=== PATIENT | female | born 1935 | race Caucasian/White ===

== ENCOUNTER 2017-09-06 23:38 | Outpatient (CLI) | payer MEDICARE | END 2017-09-06 23:39 | disposition critical access hospital (66) | LOC: EMS 23:38 | PROVIDERS: ATTEND Surgery | DX: M25.552 Pain in left hip (principal); W01.0XXA Fall on same level from slipping, tripping and stumbling without subsequent striking against object, initial encounter; Y92.099 Unspecified place in other non-institutional residence as the place of occurrence of the external cause | CPT/HCPCS: A0425; A0429 ==

== ENCOUNTER 2017-09-06 23:54 | Inpatient (IN) | payer MEDICARE ==
--- NOTE | 2017-09-06 23:55 | ED Physician Documentation ---
PD HPI Fall - Stated complaint Stated Complaint: GLF - LEFT HIP PAIN - History obtained from History obtained from: Patient (limited (demented)), Family, EMS, Caregiver - History of Present Illness Mechanism of injury: Tripped Fall distance: Standing position Where injury occurred: Other (NH) Timing - onset: Today (approximately 20-30 minutes SKATING [employer]) Injury(ies) location: Left Lower Extremity (left hip) Pain level now: 6 Quality of pain: Pain Associated symptoms: No: LOC, AMS, Amnesia Symptoms improve with: Rest Worsens with: Movement, Palpation Contributing factors: No: Anticoagulated, Intoxicated Recently seen: Not recently seen - Additional information Additional information: patient is demented and thus cannot contribute to HPI/ROS. HPI is from family ( in ED at bedside), medic report (which is also includes information given by staff at the facility at which patient is staying). Patient was apparently helped by staff to and from bathroom tonight but after she was put back in bed, she apparently got back up on her own and walked towards the bathroom, tripped and fell, sustaining injury to left hip. Cannot move LLE or bear weight due to pain Review of Systems Unable to obtain: Dementia PD PAST MEDICAL HISTORY - Past Medical History Past Medical History: Yes Neuro: Dementia - Past Surgical History Past Surgical History: No - Present Medications Home Medications: Ambulatory Orders Medication Instructions Recorded Confirmed Acetaminophen [Tylenol] 650 mg PO DAILY 09/07/17 Aspirin 81 mg PO DAILY 09/07/17 Cholecalciferol (Vitamin D3) 1,000 unit PO DAILY 09/07/17 [Vitamin D3] Multivitamin [Multivitamins] 1 each PO DAILY 09/07/17 [place]-3/Dha/Epa/Fish Oil [Fish Oil 1 each PO DAILY 09/07/17 1,000 mg Softgel] Risperidone [Risperidone Odt] 0.25 mg PO DAILY 09/07/17 Vit A/Vit C/Vit E/Zinc/Copper 1 each PO DAILY 09/07/17 [Preservision Areds Softgel] - Allergies Allergies/Adverse Reactions: Allergies Allergy/AdvReac Type Severity Reaction Status Date / Time No Known Drug Allergies Allergy Verified 09/07/17 00:00 PD ED PE NORMAL - Vitals Vital signs reviewed: Yes - General General: No acute distress (NAD at rest, but obvious painful distress with movement involving LLE), Well developed/nourished, Other (awake, alert, conversant with intelligible answers but confused, disoriented, and forgetful ( does not recall meeting me whenever I reenter the room)) - HEENT HEENT: Atraumatic, PERRL, EOMI - Neck Neck: No bony TTP - Respiratory Respiratory: No respiratory distress, Clear bilaterally - Abdomen Abdomen: Soft, Non tender - Back Back: No spinal TTP PD ED PE EXPANDED - Cardiac Cardiac: Regularly irregular - Extremities Extremities: Tenderness, Limited ROM, Left hip Results - Vitals Vitals: Vital Signs - 24 hr 09/06/17 09/07/17 23:55 00:31 Temperature 36.4 C L Heart Rate 48 L 49 L Respiratory 18 16 Rate Blood Pressure 177/75 H 155/72 H O2 Saturation 97 94 Oxygen O2 Source Room air - Rads (name of study) left hip xrays Radiology: Prelim report reviewed, See rad report PD MEDICAL DECISION MAKING - ED course Complexity details: reviewed results, re-evaluated patient, considered differential, d/w patient ED course: D/W Dr. Escalante, will admit to hospitalist service. Also d/w Dr. Malhotra, will see patient in AM in hospital. Departure - Departure Disposition: 66 [facility] DC/Xfer Clinical Impression: Hip fracture Qualifiers: Encounter type: initial encounter Fracture type: closed Laterality: left Qualified Code(s): S72.002A - Fracture of unspecified part of neck of left femur , initial encounter for closed fracture Condition: Stable Discharge Date/Time: 09/07/17 02:07
--- NOTE | 2017-09-07 01:20 | XRAY Report ---
EXAM: LEFT HIP AND PELVIS RADIOGRAPHY EXAM DATE: 09/07/2017 01:08 AM. HISTORY: Fall, pain. COMPARISONS: None. TECHNIQUE: 1 view of the pelvis and 1 view of the hip. FINDINGS: Bones: There is an intratrochanteric fracture of the left hip, mildly foreshortened. Joints: Mild osteoarthritis of the hips. Soft Tissues: Lateral soft tissue swelling. IMPRESSION: Left intratrochanteric hip fracture. [facility] Referring Provider Line: [phone] SITE ID: [id number]
[2017-09-07] MEDS ORDERED: ACETAMINOPHEN 325 MG TABLET PO PRN ×2 (01:26→10:41)
[2017-09-07] MEDS ORDERED: TEMAZEPAM 15 MG CAPSULE PO PRN (01:26)
[2017-09-07] MEDS ORDERED: PROCHLORPERAZINE 10 MG/2 ML VIAL IVP PRN ×2 (01:26→10:41)
[2017-09-07] MEDS ORDERED: SODIUM CHLORIDE FLUSH 0.9% 10 ML SYRINGE IVP PRN ×2 (01:26→10:41)
[2017-09-07] MEDS ORDERED: ONDANSETRON 4 MG/2 ML VIAL IVP PRN ×2 (01:26→10:41)
--- NOTE | 2017-09-07 01:30 | XRAY Report ---
EXAM: CHEST RADIOGRAPHY EXAM DATE: 09/07/2017 01:10 AM. CLINICAL HISTORY: Ground level fall. COMPARISON: None. TECHNIQUE: 1 view. FINDINGS: Lungs/Pleura: No focal opacities evident. No pleural effusion. No pneumothorax. Mediastinum: Within exam limitations, the cardiomediastinal contour is normal. Other: None. IMPRESSION: No evidence of acute cardiopulmonary disease. [facility] Referring Provider Line: [phone] SITE ID: [id number]
--- NOTE | 2017-09-07 01:33 | HISTORY & PHYSICAL EXAMINATION ---
Chief Complaint - Chief Complaint Chief Complaint: Left hip pain History of Present Illness - Admitted From Admitted From:: Emergency Department - History Obtained From Records Reviewed: Yes History obtained from: Patients family Exam Limitations: Patient has dementia and unable to move left leg due to pain - History of Present Illness HPI Comment/Other: Patient is an 82-year-old female who lives at [facility] with a past medical history significant for Alzheimer's dementia, macular degeneration, GERD and urinary incontinence and presents to the emergency department with a chief complaint of left hip pain. The patient was previously living in [place], [place] and was brought up here by her daughter after the patient's last month. She has been placed at a memory care unit in [facility]. The patient has severe short-term memory loss and is unable to provide any history. She cannot even remember why she is here or what happened to her. According to the patient's daughter the patient had gotten up to go to the bathroom late this evening at [facility]. According to the staff at [facility] they helped her get to the bathroom as they do normally. They then placed her back in her bed. They assume that she tried to get back out of bed because she was confused and was putting on her clothing when she must have tripped and fallen. She was found down on the floor unable to get up and in pain. She was confused and unable to provide any history of what had happened. EMS was called and the patient was brought into the emergency department. The patient is demented but she denies any headaches, blurred vision, runny nose , sore throat, nasal congestion, difficulty swallowing, fevers, chills, chest pain, shortness of air, orthopnea, PND, increased lower extremity swelling, palpitations, abdominal pain, nausea, vomiting, diarrhea, constipation, urinary urgency, urinary frequency, dysuria, neck stiffness, changes in appetite, recent unintentional weight loss, hair loss, skin changes, night sweats or any focal neurologic deficits. The patient does admit to pain in the left hip and muscle spasms around the area. On presentation to the emergency department the patient was afebrile and slightly bradycardic. The patient was hypertensive but was not in any respiratory distress. When the patient was moved in the emergency department she was in distress and complaining of pain. Once the patient settled down her pain was controlled and she did not ask for anything for her pain. The patient had a externally rotated and shortened left lower extremity. The patient underwent a x-ray of her left hip which showed a left intertrochanteric fracture. The patient underwent routine lab work which showed a WBC of 14.5 with normal electrolytes and a normal INR. The patient's urine analysis was negative. The emergency room physician spoke with the orthopedic surgeon Dr. Malhotra that the patient be admitted by the service and that he would operate on in the morning. 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 She was living with her until about a month ago when her . She is . She has 2 daughters both of whom live in [facility]. One lives on [facility] and the other one lives in [place]. Due to the patient's severe Alzheimer's dementia she was unable to take care of herself and before her they had a 24-hour caregiver. The patient's daughters wanted to move the patient closer to them so she was brought to a long term called [facility] and placed in the dementia unit. Patient has never been a smoker, she occasionally drinks a glass of wine and denies any illicit drug use. - POLST Patient has POLST: Yes POLST Status: DNR Meds/Allgy - Home Medications Home Medications: Ambulatory Orders Medication Instructions Recorded Confirmed Acetaminophen [Tylenol] 650 mg PO DAILY 09/07/17 Aspirin 81 mg PO DAILY 09/07/17 Cholecalciferol (Vitamin D3) 1,000 unit PO DAILY 09/07/17 [Vitamin D3] Multivitamin [Multivitamins] 1 each PO DAILY 09/07/17 [place]-3/Dha/Epa/Fish Oil [Fish Oil 1 each PO DAILY 09/07/17 1,000 mg Softgel] Risperidone [Risperidone Odt] 0.25 mg PO DAILY 09/07/17 Vit A/Vit C/Vit E/Zinc/Copper 1 each PO DAILY 09/07/17 [Preservision Areds Softgel] - Allergies Allergies/Adverse Reactions: Allergies Allergy/AdvReac Type Severity Reaction Status Date / Time No Known Drug Allergies Allergy Verified 09/07/17 00:00 Review of Systems - Other Findings Other Findings: A comprehensive review of systems was performed the pertinent positives and negatives are stated above in the HPI and the remainder of the review of systems is negative. Exam - Vital Signs Reviewed Vital Signs: Yes Vital Signs: Vital Signs x48h Temp Pulse Resp BP Pulse Ox 09/07/17 00:31 49 L 16 155/72 H 94 09/06/17 23:55 36.4 C L 48 L 18 177/75 H 97 - Physical Exam General Appearance: positive: No acute distress, Alert Eyes Bilateral: positive: Normal inspection, PERRL, No lid inflammation, Conjunctivae nml, No scleral icterus ENT: positive: ENT inspection nml, Pharynx nml, No signs of dehydration. negative: Purulent nasal drainage, Pharyngeal erythema, Oral lesions Neck: positive: Nml inspection, Thyroid nml, No JVD, Trachea midline. negative : Lymphadenopathy (R), Lymphadenopathy (L) Respiratory: positive: Chest non-tender, No respiratory distress, Breath sounds nml Cardiovascular: positive: No murmur, No gallop, Extrasystoles, Bradycardia Peripheral Pulses: positive: 2+ Abdomen: positive: Non-tender, No organomegaly, Nml bowel sounds, No distention Back: positive: Nml inspection. negative: CVA tenderness (R), CVA tenderness (L ) Skin: positive: Color nml, No rash, Warm, Dry Extremities: positive: No pedal edema, Other (Left hip is shortened and externally rotated, decreased ROM secondary to pain of left hip) Neurologic/Psychiatric: positive: CN's nml (2-12), Motor nml, Sensation nml, Mood/affect nml, Disoriented to time Conclusion/Plan - Problem List (1) Intertrochanteric fracture of left hip Conclusion/Plan: Patient appears to have had a mechanical fall and presented to the ER with left hip pain. She was found to have a left intertrochanteric fracture. She needs the left intertrochanteric fracture to be repaired. The patient does not have any history of coronary artery disease, congestive heart failure, diabetes or stroke. According to the revised cardiac risk index the patient's risk of major cardiac event is 0.4%. Plan: N.p.o. Pain control with p.o. Tylenol, p.o. oxycodone and IV morphine Orthopedic surgery consult for surgical repair of the left intertrochanteric fracture DVT prophylaxis post surgery IV fluids PT consult Patient will likely need placement and will need social work consult. Qualifiers: Encounter type: initial encounter Fracture type: closed Fracture alignment: nondisplaced Qualified Code(s): S72.145A - Nondisplaced intertrochanteric fracture of left femur, initial encounter for closed fracture (2) Alzheimer's dementia Conclusion/Plan: Patient has severe Alzheimer's dementia and has very poor short-term memory. She cannot remember why she is in the hospital or what happened. Given her Alzheimer's dementia she runs a risk of delirium and sundowning while she is hospitalized. We will need to continually orient the patient and monitor for any delirium. We will continue the patient on her home dose of risperidone once it is confirmed by the pharmacy. Qualifiers: Alzheimer's disease onset: unspecified onset Dementia behavioral disturbance: without behavioral disturbance Qualified Code(s): G30.9 - Alzheimer's disease, unspecified; F02.80 - Dementia in other diseases classified elsewhere without behavioral disturbance; F02.80 - Dementia in other diseases classified elsewhere without behavioral disturbance; F02.80 - Dementia in other diseases classified elsewhere without behavioral disturbance (3) Hypertension Conclusion/Plan: The patient presents with hypertension and her blood pressure is quite elevated. It is assumed that this is likely elevated secondary to pain from her hip fracture. We expect the blood pressure will improve once we get her pain under control. If the patient's blood pressure continues to be elevated we will need to start her on an antihypertensive. She does not have any history of essential hypertension. We will monitor her blood pressure throughout the hospitalization. Qualifiers: Hypertension type: other secondary hypertension Qualified Code(s): I15.8 - Other secondary hypertension (4) GERD (gastroesophageal reflux disease) Conclusion/Plan: Patient has a history of GERD. We will place her on Pepcid daily. Qualifiers: Esophagitis presence: without esophagitis Qualified Code(s): K21.9 - Gastro -esophageal reflux disease without esophagitis - Lab Results Lab results reviewed: Yes Fish Bones: 09/07/17 01:30 09/07/17 01:30 Other Lab Results: Laboratory Results WBC 14.5 x10^3/uL (4.8-10.8) H 09/07/17 01:30 RBC 4.48 10^6/uL (4.20-5.40) 09/07/17 01:30 Hgb 12.8 g/dL (12.0-16.0) 09/07/17 01:30 Hct 40.1 % (37.0-47.0) 09/07/17 01:30 MCV 89.6 fL (81.0-99.0) 09/07/17 01:30 MCH 28.7 pg (27.0-31.0) 09/07/17 01:30 MCHC 32.0 g/dL (32.0-36.0) 09/07/17 01:30 RDW 13.1 % (12.0-15.0) 09/07/17 01:30 Plt Count 269 10^3/uL (130-450) 09/07/17 01:30 MPV 8.0 fL (7.9-10.8) 09/07/17 01:30 Neut # (Auto) 12.1 10^3/uL (1.5-6.6) H 09/07/17 01:30 Lymph # (Auto) 1.2 10^3/uL (1.5-3.5) L 09/07/17 01:30 [place] # (Auto) 0.9 10^3/uL (0.0-1.0) 09/07/17 01:30 Eos # (Auto) 0.1 10^3/uL (0.0-0.7) 09/07/17 01:30 Baso # (Auto) 0.1 10^3/uL (0.0-0.1) 09/07/17 01:30 Absolute Nucleated RBC 0.01 x10^3/uL 09/07/17 01:30 Nucleated RBC % 0.0 /100WBC 09/07/17 01:30 PT 12.3 secs (9.9-12.6) 09/07/17 01:30 INR 1.1 (0.8-1.2) 09/07/17 01:30 APTT 28.0 secs (24.9-33.3) 09/07/17 01:30 Sodium 138 mmol/L (135-145) 09/07/17 01:30 Potassium 4.0 mmol/L (3.5-5.0) 09/07/17 01:30 Chloride 106 mmol/L (101-111) 09/07/17 01:30 Carbon Dioxide 25 mmol/L (21-32) 09/07/17 01:30 Anion Gap 7.0 (6-13) 09/07/17 01:30 BUN 15 mg/dL (6-20) 09/07/17 01:30 Creatinine 0.8 mg/dL (0.4-1.0) 09/07/17 01:30 Estimated GFR (MDRD) 69 (>89) L 09/07/17 01:30 Glucose 119 mg/dL (70-100) H 09/07/17 01:30 Calcium 8.9 mg/dL (8.5-10.3) 09/07/17 01:30 Urine Color LT. YELLOW 09/07/17 01:55 Urine Clarity CLEAR (CLEAR) 09/07/17 01:55 Urine pH 7.5 PH (5.0-7.5) 09/07/17 01:55 Ur Specific [place] 1.010 (1.002-1.030) 09/07/17 01:55 Urine Protein NEGATIVE mg/dL (NEGATIVE) 09/07/17 01:55 Urine Glucose (UA) NEGATIVE mg/dL (NEGATIVE) 09/07/17 01:55 Urine Ketones NEGATIVE mg/dL (NEGATIVE) 09/07/17 01:55 Urine Occult Blood NEGATIVE (NEGATIVE) 09/07/17 01:55 Urine Nitrite NEGATIVE (NEGATIVE) 09/07/17 01:55 Urine Bilirubin NEGATIVE (NEGATIVE) 09/07/17 01:55 Urine Urobilinogen 0.2 (NORMAL) E.U./dL (NORMAL) 09/07/17 01:55 Ur Leukocyte Esterase NEGATIVE (NEGATIVE) 09/07/17 01:55 Ur Microscopic Review NOT INDICATED 09/07/17 01:55 Urine Culture Comments NOT INDICATED 09/07/17 01:55 - Diagnostic Imaging Results Diagnostic Imaging Results: positive: Final report reviewed Diagnostic Imaging Results Comments: Hip/pelvis x-ray Impression: Left intertrochanteric hip fracture - EKG Results EKG Interpreted Independently: Yes EKG Findings: Sinus rhythm with PVCs. Core Measures - Anticipated LOS I expect patient to be DC'd or transferred within 96 hours.: Yes - DVT/VTE - Prophylaxis VTE/DVT Prophylaxis med ordered at admit?: Yes
[2017-09-07 01:42] LABS: BASOPHILS # (AUTO) 0.1 10^3/uL (0.0-0.1); BASOPHILS % (AUTO) 0.7 %; EOSINOPHILS # (AUTO) 0.1 10^3/uL (0.0-0.7); HGB - HEMOGLOBIN 12.8 g/dL (12.0-16.0); LYMPHOCYTES # (AUTO) 1.2 10^3/uL (1.5-3.5)
[2017-09-07 01:44] LABS: INR 1.1 (0.8-1.2); LYMPHOCYTES % (AUTO) 8.4 %; MEAN CORPUSCULAR HEMOGLOBIN 28.7 pg (27.0-31.0); MEAN CORPUSCULAR VOLUME 89.6 fL (81.0-99.0); MONOCYTES # (AUTO) 0.9 10^3/uL (0.0-1.0); MONOCYTES % (AUTO) 6.3 %; NEUTROPHILS # (AUTO) 12.1 10^3/uL (1.5-6.6); NEUTROPHILS % (AUTO) 83.6 %; PLT - PLATELET COUNT 269 10^3/uL (130-450); PT - PROTHROMBIN TIME 12.3 secs (9.9-12.6); RED BLOOD COUNT 4.48 10^6/uL (4.20-5.40); RED CELL DISTRIBUTION WIDTH 13.1 % (12.0-15.0); WHITE BLOOD COUNT 14.5 x10^3/uL (4.8-10.8)
[2017-09-07 01:54] LABS: CALCIUM 8.9 mg/dL (8.5-10.3); CREATININE 0.8 mg/dL (0.4-1.0)
[2017-09-07] MEDS ORDERED: SODIUM CHLORIDE 0.9% 1,000 ML IV SCH (02:00)
[2017-09-07 02:05] LABS: BILIRUBIN,URINE NEGATIVE (NEGATIVE); GLUCOSE, URINE (UA) NEGATIVE (NEGATIVE); KETONES,URINE (UA) NEGATIVE (NEGATIVE); LEUKOCYTE ESTERASE, URINE NEGATIVE (NEGATIVE); NITRITE,URINE NEGATIVE (NEGATIVE); OCCULT BLOOD,URINE NEGATIVE (NEGATIVE); PH,URINE 7.5 PH (5.0-7.5); PROTEIN,URINE NEGATIVE (NEGATIVE); UROBILINOGEN,URINE 0.2 (NORMAL) E.U./dL (NORMAL)
--- NOTE | 2017-09-07 02:06 | PROVIDER PROGRESS NOTE ---
Subjective - Prog Note Date Prog Note Date: 09/07/17 Prog Note Time: 02:04 - Subjective Pt reports feeling: Worse (Patient STHH a GLF at her SNF tonight while gettting back into bed from the bathroom, falling and sustaining a closed left IT hip fracture. Has dementia and recently admitted to SNF.) Objective - Lab Results Fish Bones: 09/07/17 01:30 09/07/17 01:30 Other Labs: Lab Results x24hrs 09/07/17 09/07/17 09/07/17 Range/Units 01:30 01:30 01:30 WBC 14.5 H (4.8-10.8) x10^3/uL RBC 4.48 (4.20-5.40) 10^6/uL Hgb 12.8 (12.0-16.0) g/dL Hct 40.1 (37.0-47.0) % MCV 89.6 (81.0-99.0) fL MCH 28.7 (27.0-31.0) pg MCHC 32.0 (32.0-36.0) g/dL RDW 13.1 (12.0-15.0) % Plt Count 269 (130-450) 10^3/uL MPV 8.0 (7.9-10.8) fL Neut # (Auto) 12.1 H (1.5-6.6) 10^3/uL Lymph # (Auto) 1.2 L (1.5-3.5) 10^3/uL [place] # (Auto) 0.9 (0.0-1.0) 10^3/uL Eos # (Auto) 0.1 (0.0-0.7) 10^3/uL Baso # (Auto) 0.1 (0.0-0.1) 10^3/uL Absolute Nucleated RBC 0.01 x10^3/uL Nucleated RBC % 0.0 /100WBC PT 12.3 (9.9-12.6) secs INR 1.1 (0.8-1.2) APTT 28.0 (24.9-33.3) secs Sodium 138 (135-145) mmol/L Potassium 4.0 (3.5-5.0) mmol/L Chloride 106 (101-111) mmol/L Carbon Dioxide 25 (21-32) mmol/L Anion Gap 7.0 (6-13) BUN 15 (6-20) mg/dL Creatinine 0.8 (0.4-1.0) mg/dL Estimated GFR (MDRD) 69 L (>89) Glucose 119 H (70-100) mg/dL Calcium 8.9 (8.5-10.3) mg/dL - Diagnostic Imaging Diagnostic Imaging Comments: XR show a stable left IT hip fracture - Other Results/Comments Other Results/Comments: EXAM: Painful left hip motion. Moves toes ok. Sensation intact. Good cap filling Assessment/Plan - Problem List (1) Intertrochanteric fracture of left hip Impression: Stable and medically cleared to surgery PLAN: Once cleared by the medical service, will plan surgical fixation of left hip fracture. Will stabilize with a short interTan nail later this AM. Discussed with patient's family. Discussed surgery, risks/benefits. They wish to proceed as planned. Consent signed. Leg marked. Qualifiers: Encounter type: initial encounter Fracture type: closed Fracture alignment: nondisplaced Qualified Code(s): S72.145A - Nondisplaced intertrochanteric fracture of left femur, initial encounter for closed fracture
[2017-09-07 02:07] LABS: CLARITY,URINE CLEAR (CLEAR)
[2017-09-07] MEDS: MORPHINE 2 MG/ML SYRINGE IVP PRN ×2 (02:36→06:43)
[2017-09-07 05:56] LABS: BASOPHILS # (AUTO) 0.1 10^3/uL (0.0-0.1); BASOPHILS % (AUTO) 0.4 %; EOSINOPHILS % (AUTO) 0.3 %; HGB - HEMOGLOBIN 12.9 g/dL (12.0-16.0); LYMPHOCYTES % (AUTO) 6.7 %; MEAN CORPUSCULAR HEMOGLOBIN 28.7 pg (27.0-31.0); MEAN CORPUSCULAR HGB CONC 32.3 g/dL (32.0-36.0); MEAN CORPUSCULAR VOLUME 88.6 fL (81.0-99.0); MEAN PLATELET VOLUME 8.2 fL (7.9-10.8); MONOCYTES # (AUTO) 0.9 10^3/uL (0.0-1.0); NEUTROPHILS # (AUTO) 13.4 10^3/uL (1.5-6.6); NEUTROPHILS % (AUTO) 86.6 %; PLT - PLATELET COUNT 270 10^3/uL (130-450); RED BLOOD COUNT 4.49 10^6/uL (4.20-5.40); RED CELL DISTRIBUTION WIDTH 13.1 % (12.0-15.0); WHITE BLOOD COUNT 15.5 x10^3/uL (4.8-10.8)
[2017-09-07 06:00] LABS: INR 1.1 (0.8-1.2); PT - PROTHROMBIN TIME 12.4 secs (9.9-12.6)
[2017-09-07 06:05] LABS: ALBUMIN 3.5 g/dL (3.2-5.5); ALBUMIN/GLOBULIN RATIO 1.3 (1.0-2.2); BILIRUBIN,TOTAL 1.3 mg/dL (0.2-1.0); CALCIUM 8.9 mg/dL (8.5-10.3); CREATININE 0.7 mg/dL (0.4-1.0); MAGNESIUM 2.1 mg/dL (1.7-2.8); PHOSPHORUS 2.6 mg/dL (2.5-4.6); TOTAL PROTEIN 6.3 g/dL (6.7-8.2)
[2017-09-07 06:40] LABS: HB2 TOTAL 14.6 g/dL; HEMOGLOBIN A1C 0.51 g/dL; HEMOGLOBIN A1C % 5.3 % (4.6-6.2)
[2017-09-07] MEDS: FAMOTIDINE 20 MG TABLET PO SCH (07:22)
[2017-09-07] MEDS: POLYETHYLENE GLYCOL 3350 17 GM PACKET PO SCH (07:22)
[2017-09-07] MEDS ORDERED: POTASSIUM CHLORIDE 20 MEQ TABLET PO ONE (08:15)
[2017-09-07] MEDS ORDERED: BUPIVACAINE 0.25%-EPI 1:200000 PF 30 ML VIAL ONE (08:40)
[2017-09-07] MEDS ORDERED: ceFAZolin 2 GM/50 ML 2 GM/50 ML BAG IV SCH (08:45)
[2017-09-07] MEDS ORDERED: SODIUM CHLORIDE FLUSH 0.9% 10 ML SYRINGE IVP SCH (09:00)
[2017-09-07] MEDS ORDERED: SODIUM CHLORIDE 0.9% 400 ML IV ONE (09:22)
[2017-09-07] MEDS ORDERED: PROPOFOL 200 MG/20 ML VIAL IVP ONE (09:58)
[2017-09-07] MEDS ORDERED: ceFAZolin 1 GM VIAL IV ONE (09:58)
[2017-09-07] MEDS ORDERED: KETOROLAC 30 MG/ML VIAL IVP ONE (09:58)
[2017-09-07] MEDS ORDERED: ONDANSETRON 4 MG/2 ML VIAL IVP ONE (09:58)
[2017-09-07] MEDS ORDERED: ACETAMINOPHEN 1,000 MG/100 ML 100 ML IV ONE (09:58)
[2017-09-07] MEDS ORDERED: diphenhydrAMINE INJ 50 MG/ML VIAL IVP ONE (09:58)
[2017-09-07] MEDS ORDERED: ePHEDrine 50 MG/ML AMP IVP ONE (09:58)
[2017-09-07] MEDS ORDERED: fentaNYL 250 MCG/5 ML VIAL IVP ONE (09:58)
[2017-09-07] MEDS ORDERED: SODIUM CHLORIDE 0.9% 100 ML BAG IV ONE (09:58)
[2017-09-07] MEDS ORDERED: LACTATED RINGERS 1,000 ML IV ONE (10:02)
[2017-09-07] MEDS ORDERED: BUPIVACAINE 0.25%-EPI 1:200000 PF 30 ML VIAL SUBQ ONE ×2 (10:03)
[2017-09-07] MEDS ORDERED: oxyCOD/ACETAMIN 5 MG/325 MG TABLET PO PRN (10:41)
[2017-09-07] MEDS ORDERED: SENNA 8.6 MG TABLET PO PRN (10:41)
[2017-09-07] MEDS ORDERED: MORPHINE 2 MG/ML SYRINGE IVP PRN (10:41)
[2017-09-07] MEDS ORDERED: DOCUSATE SODIUM 100 MG CAPSULE PO PRN (10:41)
--- NOTE | 2017-09-07 10:46 | OPERATIVE REPORT ---
Operative Report - General Admit Date: 09/07/17 Procedure Date: 09/07/17 Planned Procedure: Short interTan nailing of left hip fracture Pre-Op Diagnosis: Left intertrochanteric hip fracture Procedure Performed: Closed reduction and short interTan nailing of left hip fracture Post Op Diagnosis: Same - Procedure Note Primary Surgeon: Ellen Malhotra Anesthesia Provider: Dmitry Parnell Anesthesia Technique: General LMA IV Fluids (mL): 1,000 Estimated Blood Loss (mL): 100 Complications: None
--- NOTE | 2017-09-07 12:39 | PROVIDER PROGRESS NOTE ---
Subjective - Prog Note Date Prog Note Date: 09/07/17 - Subjective Pt reports feeling: No change Subjective: pt is on the operation. will follow up after operation Current Medications - Current Medications Current Medications: Active Medications Acetaminophen (Tylenol) 650 mg PO Q4HR PRN PRN Reason: Pain 1 to 4 Aspirin (Rudi) 325 mg PO BIDWM [facility], [facility]1983 Docusate Sodium (Colace 100mg Capsule) 100 mg PO BID PRN PRN Reason: Constipation Enoxaparin Sodium (Lovenox) 40 mg SUBQ 1600 [facility], [facility]1983 Famotidine (Pepcid) 20 mg PO DAILY [facility], [facility] Last Admin: 09/07/17 07:22 Dose: Not Given Cefazolin Sodium/Dextrose (Ancef 2 Gm/50 Ml) 2 gm in 50 mls @ 100 mls/hr IV Q8H [facility] Stop: 09/08/17 01:29 Acetaminophen (Ofirmev) 100 mls @ 400 mls/hr IV Q6HR PRN PRN Reason: PAIN Last Admin: 09/07/17 12:40 Dose: 400 mls/hr Sodium Chloride (Normal Saline 0.9%) 1,000 mls @ 100 mls/hr IV .Q10H [facility] Last Admin: 09/07/17 12:41 Dose: 100 mls/hr Morphine Sulfate (Morphine) 2 mg IVP Q2H PRN PRN Reason: Pain 8 to 10 Last Admin: 09/07/17 06:43 Dose: 2 mg Ondansetron HCl (Zofran Inj) 4 mg IVP Q6HR PRN PRN Reason: Nausea / Vomiting Oxycodone HCl (Roxicodone) 5 mg PO Q4HR PRN PRN Reason: Pain 5 to 7 Oxycodone HCl (Roxicodone) 10 mg PO Q4HR PRN PRN Reason: Pain 8 to 10 Polyethylene Glycol (Miralax) 17 gm PO DAILY [facility] Last Admin: 09/07/17 07:22 Dose: Not Given Prochlorperazine Edisylate (Compazine Inj) 10 mg IVP Q6HR PRN PRN Reason: Nausea / Vomiting Senna (Senokot) 17.2 mg PO Q12H PRN PRN Reason: Constipation Sodium Chloride (Normal Saline Flush 0.9%) 10 ml IVP 0100,0900,1700 [facility] Sodium Chloride (Normal Saline Flush 0.9%) 10 ml IVP PRN PRN PRN Reason: NEEDED PER PROVIDER ORDERS Temazepam (Restoril) 15 mg PO QPM PRN PRN Reason: Insomnia Acetaminophen [Tylenol] 650 mg PO DAILY 09/07/17 Aspirin 81 mg PO DAILY 09/07/17 Cholecalciferol (Vitamin D3) [Vitamin D3] 1,000 unit PO DAILY 09/07/17 Multivitamin [Multivitamins] 1 each PO DAILY 09/07/17 [place]-3/Dha/Epa/Fish Oil [Fish Oil 1,000 mg Softgel] 1 each PO DAILY 09/07/17 Risperidone [Risperidone Odt] 0.25 mg PO DAILY 09/07/17 Vit A/Vit C/Vit E/Zinc/Copper [Preservision Areds Softgel] 1 each PO DAILY 09/07 Objective - Vital Signs/Intake & Output Reviewed Vital Signs: Yes Vital Signs: Vital Signs x48h Temp Pulse Pulse Resp BP Pulse Ox 09/07/17 11:20 36.2 C L 55 L 14 138/52 H 97 09/07/17 11:15 97 09/07/17 11:10 100 09/07/17 11:05 99 09/07/17 11:00 99 09/07/17 10:55 99 09/07/17 10:50 99 09/07/17 10:45 100 09/07/17 10:40 100 09/07/17 07:56 36.6 C 88 24 126/71 94 09/07/17 06:41 90 95 H Intake & Output: Intake & Output 09/04/17 09/05/17 09/06/17 09/07/17 23:59 23:59 23:59 23:59 Output Total 950 Balance -950 - Objective General Appearance: positive: No acute distress, Alert. negative: Lethargic Eyes Bilateral: positive: Normal inspection, PERRL, No lid inflammation, Conjunctivae nml ENT: positive: ENT inspection nml, Pharynx nml, No signs of dehydration. negative: Purulent nasal drainage, Pharyngeal erythema, Oral lesions Neck: positive: Nml inspection, Thyroid nml, No JVD, Trachea midline. negative : Thyromegaly, Lymphadenopathy (R), Lymphadenopathy (L), Stiff neck, Swelling/ bruising, Tracheal deviation Respiratory: positive: Chest non-tender, No respiratory distress, Breath sounds nml. negative: Wheezes, Rales, Rhonchi Cardiovascular: positive: Regular rate & rhythm, No murmur, No gallop. negative : Irregularly irregular, Extrasystoles, Tachycardia, Bradycardia, JVD present, Systolic murmur, Diastolic murmur Peripheral Pulses: 2+ Radial (R), 2+ Radial (L), 2+ Dorsalis pedis (R), 2+ Dorsalis pedis (L) Abdomen: positive: Non-tender, No organomegaly, Nml bowel sounds, No distention. negative: Tenderness, Guarding, Rebound Back: positive: Nml inspection. negative: CVA tenderness (R), CVA tenderness (L ) Skin: positive: Color nml, No rash, Warm, Dry. negative: Cyanosis, Diaphoresis , Pallor Extremities: negative: Calf tenderness, Joint swelling, Monse's sign/cords Neurologic/Psychiatric: positive: Sensation nml, Mood/affect nml. negative: Weakness, Sensory loss, Facial droop, Slurred/abnml speech, Depressed mood/ affect - Lab Results Fish Bones: 09/07/17 05:20 09/07/17 05:20 Other Labs: Lab Results x24hrs 09/07/17 09/07/17 09/07/17 Range/Units 05:20 05:20 05:20 WBC (4.8-10.8) x10^3/uL RBC (4.20-5.40) 10^6/uL Hgb (12.0-16.0) g/dL Hct (37.0-47.0) % MCV (81.0-99.0) fL MCH (27.0-31.0) pg MCHC (32.0-36.0) g/dL RDW (12.0-15.0) % Plt Count (130-450) 10^3/uL MPV (7.9-10.8) fL Neut # (Auto) (1.5-6.6) 10^3/uL Lymph # (Auto) (1.5-3.5) 10^3/uL Runnels # (Auto) (0.0-1.0) 10^3/uL Eos # (Auto) (0.0-0.7) 10^3/uL Baso # (Auto) (0.0-0.1) 10^3/uL Absolute Nucleated RBC x10^3/uL Nucleated RBC % /100WBC PT (9.9-12.6) secs INR (0.8-1.2) APTT (24.9-33.3) secs Sodium 142 (135-145) mmol/L Potassium 3.4 L (3.5-5.0) mmol/L Chloride 106 (101-111) mmol/L Carbon Dioxide 28 (21-32) mmol/L Anion Gap 8.0 (6-13) BUN 13 (6-20) mg/dL Creatinine 0.7 (0.4-1.0) mg/dL Estimated GFR (MDRD) 80 L (>89) Glucose 118 H (70-100) mg/dL Glycated Hemoglobin 5.3 (4.6-6.2) % Estim Average Glucose 105 H (70-100) Calcium 8.9 (8.5-10.3) mg/dL Phosphorus 2.6 (2.5-4.6) mg/dL Magnesium 2.1 (1.7-2.8) mg/dL Total Bilirubin 1.3 H (0.2-1.0) mg/dL AST 18 (10-42) IU/L ALT 14 (10-60) IU/L Alkaline Phosphatase 80 (42-121) IU/L Total Protein 6.3 L (6.7-8.2) g/dL Albumin 3.5 (3.2-5.5) g/dL Globulin 2.8 (2.1-4.2) g/dL Albumin/Globulin Ratio 1.3 (1.0-2.2) TSH 4.96 (0.34-5.60) uIU/mL Urine Color Urine Clarity (CLEAR) Urine pH (5.0-7.5) PH Ur Specific [place] (1.002-1.030) Urine Protein (NEGATIVE) mg/dL Urine Glucose (UA) (NEGATIVE) mg/dL Urine Ketones (NEGATIVE) mg/dL Urine Occult Blood (NEGATIVE) Urine Nitrite (NEGATIVE) Urine Bilirubin (NEGATIVE) Urine Urobilinogen (NORMAL) E.U./dL Ur Leukocyte Esterase (NEGATIVE) Ur Microscopic Review Urine Culture Comments Blood Type Antibody Screen 09/07/17 09/07/17 09/07/17 Range/Units 05:20 05:20 03:20 WBC 15.5 H (4.8-10.8) x10^3/uL RBC 4.49 (4.20-5.40) 10^6/uL Hgb 12.9 (12.0-16.0) g/dL Hct 39.8 (37.0-47.0) % MCV 88.6 (81.0-99.0) fL MCH 28.7 (27.0-31.0) pg MCHC 32.3 (32.0-36.0) g/dL RDW 13.1 (12.0-15.0) % Plt Count 270 (130-450) 10^3/uL MPV 8.2 (7.9-10.8) fL Neut # (Auto) 13.4 H (1.5-6.6) 10^3/uL Lymph # (Auto) 1.0 L (1.5-3.5) 10^3/uL R[place] # (Auto) 0.9 (0.0-1.0) 10^3/uL Eos # (Auto) 0.0 (0.0-0.7) 10^3/uL Baso # (Auto) 0.1 (0.0-0.1) 10^3/uL Absolute Nucleated RBC 0.00 x10^3/uL Nucleated RBC % 0.0 /100WBC PT 12.4 (9.9-12.6) secs INR 1.1 (0.8-1.2) APTT (24.9-33.3) secs Sodium (135-145) mmol/L Potassium (3.5-5.0) mmol/L Chloride (101-111) mmol/L Carbon Dioxide (21-32) mmol/L Anion Gap (6-13) BUN (6-20) mg/dL Creatinine (0.4-1.0) mg/dL Estimated GFR (MDRD) (>89) Glucose (70-100) mg/dL Glycated Hemoglobin (4.6-6.2) % Estim Average Glucose (70-100) Calcium (8.5-10.3) mg/dL Phosphorus (2.5-4.6) mg/dL Magnesium (1.7-2.8) mg/dL Total Bilirubin (0.2-1.0) mg/dL AST (10-42) IU/L ALT (10-60) IU/L Alkaline Phosphatase (42-121) IU/L Total Protein (6.7-8.2) g/dL Albumin (3.2-5.5) g/dL Globulin (2.1-4.2) g/dL Albumin/Globulin Ratio (1.0-2.2) TSH (0.34-5.60) uIU/mL Urine Color Urine Clarity (CLEAR) Urine pH (5.0-7.5) PH Ur Specific [place] (1.002-1.030) Urine Protein (NEGATIVE) mg/dL Urine Glucose (UA) (NEGATIVE) mg/dL Urine Ketones (NEGATIVE) mg/dL Urine Occult Blood (NEGATIVE) Urine Nitrite (NEGATIVE) Urine Bilirubin (NEGATIVE) Urine Urobilinogen (NORMAL) E.U./dL Ur Leukocyte Esterase (NEGATIVE) Ur Microscopic Review Urine Culture Comments Blood Type O POSITIVE Antibody Screen NEGATIVE 09/07/17 09/07/17 09/07/17 Range/Units 01:55 01:30 01:30 WBC (4.8-10.8) x10^3/uL RBC (4.20-5.40) 10^6/uL Hgb (12.0-16.0) g/dL Hct (37.0-47.0) % MCV (81.0-99.0) fL MCH (27.0-31.0) pg MCHC (32.0-36.0) g/dL RDW (12.0-15.0) % Plt Count (130-450) 10^3/uL MPV (7.9-10.8) fL Neut # (Auto) (1.5-6.6) 10^3/uL Lymph # (Auto) (1.5-3.5) 10^3/uL [place] # (Auto) (0.0-1.0) 10^3/uL Eos # (Auto) (0.0-0.7) 10^3/uL Baso # (Auto) (0.0-0.1) 10^3/uL Absolute Nucleated RBC x10^3/uL Nucleated RBC % /100WBC PT 12.3 (9.9-12.6) secs INR 1.1 (0.8-1.2) APTT 28.0 (24.9-33.3) secs Sodium 138 (135-145) mmol/L Potassium 4.0 (3.5-5.0) mmol/L Chloride 106 (101-111) mmol/L Carbon Dioxide 25 (21-32) mmol/L Anion Gap 7.0 (6-13) BUN 15 (6-20) mg/dL Creatinine 0.8 (0.4-1.0) mg/dL Estimated GFR (MDRD) 69 L (>89) Glucose 119 H (70-100) mg/dL Glycated Hemoglobin (4.6-6.2) % Estim Average Glucose (70-100) Calcium 8.9 (8.5-10.3) mg/dL Phosphorus (2.5-4.6) mg/dL Magnesium (1.7-2.8) mg/dL Total Bilirubin (0.2-1.0) mg/dL AST (10-42) IU/L ALT (10-60) IU/L Alkaline Phosphatase (42-121) IU/L Total Protein (6.7-8.2) g/dL Albumin (3.2-5.5) g/dL Globulin (2.1-4.2) g/dL Albumin/Globulin Ratio (1.0-2.2) TSH (0.34-5.60) uIU/mL Urine Color LT. YELLOW Urine Clarity CLEAR (CLEAR) Urine pH 7.5 (5.0-7.5) PH Ur Specific [place] 1.010 (1.002-1.030) Urine Protein NEGATIVE (NEGATIVE) mg/dL Urine Glucose (UA) NEGATIVE (NEGATIVE) mg/dL Urine Ketones NEGATIVE (NEGATIVE) mg/dL Urine Occult Blood NEGATIVE (NEGATIVE) Urine Nitrite NEGATIVE (NEGATIVE) Urine Bilirubin NEGATIVE (NEGATIVE) Urine Urobilinogen 0.2 (NORMAL) (NORMAL) E.U./dL Ur Leukocyte Esterase NEGATIVE (NEGATIVE) Ur Microscopic Review NOT INDICATED Urine Culture Comments NOT INDICATED Blood Type Antibody Screen 09/07/17 Range/Units 01:30 WBC 14.5 H (4.8-10.8) x10^3/uL RBC 4.48 (4.20-5.40) 10^6/uL Hgb 12.8 (12.0-16.0) g/dL Hct 40.1 (37.0-47.0) % MCV 89.6 (81.0-99.0) fL MCH 28.7 (27.0-31.0) pg MCHC 32.0 (32.0-36.0) g/dL RDW 13.1 (12.0-15.0) % Plt Count 269 (130-450) 10^3/uL MPV 8.0 (7.9-10.8) fL Neut # (Auto) 12.1 H (1.5-6.6) 10^3/uL Lymph # (Auto) 1.2 L (1.5-3.5) 10^3/uL [place] # (Auto) 0.9 (0.0-1.0) 10^3/uL Eos # (Auto) 0.1 (0.0-0.7) 10^3/uL Baso # (Auto) 0.1 (0.0-0.1) 10^3/uL Absolute Nucleated RBC 0.01 x10^3/uL Nucleated RBC % 0.0 /100WBC PT (9.9-12.6) secs INR (0.8-1.2) APTT (24.9-33.3) secs Sodium (135-145) mmol/L Potassium (3.5-5.0) mmol/L Chloride (101-111) mmol/L Carbon Dioxide (21-32) mmol/L Anion Gap (6-13) BUN (6-20) mg/dL Creatinine (0.4-1.0) mg/dL Estimated GFR (MDRD) (>89) Glucose (70-100) mg/dL Glycated Hemoglobin (4.6-6.2) % Estim Average Glucose (70-100) Calcium (8.5-10.3) mg/dL Phosphorus (2.5-4.6) mg/dL Magnesium (1.7-2.8) mg/dL Total Bilirubin (0.2-1.0) mg/dL AST (10-42) IU/L ALT (10-60) IU/L Alkaline Phosphatase (42-121) IU/L Total Protein (6.7-8.2) g/dL Albumin (3.2-5.5) g/dL Globulin (2.1-4.2) g/dL Albumin/Globulin Ratio (1.0-2.2) TSH (0.34-5.60) uIU/mL Urine Color Urine Clarity (CLEAR) Urine pH (5.0-7.5) PH Ur Specific [place] (1.002-1.030) Urine Protein (NEGATIVE) mg/dL Urine Glucose (UA) (NEGATIVE) mg/dL Urine Ketones (NEGATIVE) mg/dL Urine Occult Blood (NEGATIVE) Urine Nitrite (NEGATIVE) Urine Bilirubin (NEGATIVE) Urine Urobilinogen (NORMAL) E.U./dL Ur Leukocyte Esterase (NEGATIVE) Ur Microscopic Review Urine Culture Comments Blood Type Antibody Screen ABX Reporting Has patient been on IV antibiotics over the past 48 hours?: No Assessment/Plan - Problem List (1) Hip fracture Impression: Conclusion/Plan: pt is on operation, will follow up after operation will have PT/OT evaluate and treat pain control monitor bleeding after operation Patient appears to have had a mechanical fall and presented to the ER with left hip pain. She was found to have a left intertrochanteric fracture. She needs the left intertrochanteric fracture to be repaired. The patient does not have any history of coronary artery disease, congestive heart failure, diabetes or stroke. According to the revised cardiac risk index the patient's risk of major cardiac event is 0.4%. Plan: N.p.o. Pain control with p.o. Tylenol, p.o. oxycodone and IV morphine Orthopedic surgery consult for surgical repair of the left intertrochanteric fracture DVT prophylaxis post surgery IV fluids PT consult Patient will likely need placement and will need social work consult. (2) Alzheimer's dementia Conclusion/Plan: stable, continue support Patient has severe Alzheimer's dementia and has very poor short-term memory. She cannot remember why she is in the hospital or what happened. Given her Alzheimer's dementia she runs a risk of delirium and sundowning while she is hospitalized. We will need to continually orient the patient and monitor for any delirium. We will continue the patient on her home dose of risperidone once it is confirmed by the pharmacy. (3) Hypertension Conclusion/Plan: stable, vital monitor The patient presents with hypertension and her blood pressure is quite elevated. It is assumed that this is likely elevated secondary to pain from her hip fracture. We expect the blood pressure will improve once we get her pain under control. If the patient's blood pressure continues to be elevated we will need to start her on an antihypertensive. She does not have any history of essential hypertension. We will monitor her blood pressure throughout the hospitalization. (4) GERD (gastroesophageal reflux disease) Conclusion/Plan: Patient has a history of GERD. We will place her on Pepcid daily. Qualifiers: Encounter type: initial encounter Fracture type: closed Laterality: left Qualified Code(s): S72.002A - Fracture of unspecified part of neck of left femur, initial encounter for closed fracture
[2017-09-07] MEDS: ACETAMINOPHEN 1,000 MG/100 ML 100 ML IV PRN (12:40)
[2017-09-07] MEDS: SODIUM CHLORIDE 0.9% 1,000 ML IV SCH (12:41)
--- NOTE | 2017-09-07 13:00 | CONSULTATION NOTE ---
DATE OF SERVICE: 09/07/2017 Physician: Bhavin Malhotra MD REFERRING PHYSICIAN: Dr. Nicholas Cortés of the Emergency Room Department. CHIEF COMPLAINT: "My left hip hurts." HISTORY OF PRESENT ILLNESS: Patient is an 82-year-old, female recently admitted to an assisted living facility due to her dementia, who was apparently attempting to get back to her bed from the bathroom last evening when she fell. She landed on her left side and has been complaining of a mild deformity and pain in this area ever since. She was unable to stand or weight-bear. She was taken to the emergency room by ambulance where x-ray showed her left intertrochanteric hip fracture. The patient denies any other injuries. There was no loss of consciousness, nausea, vomiting, etc. No prior fractures. PHYSICAL EXAMINATION: Left hip - was tender to palpation. Painful range of motion was noted. The patient was able to move her toes satisfactory. Sensation appeared to be intact. Good capillary filling noted. X-RAYS: X-rays that were taken show a left intertrochanteric hip fracture present. ASSESSMENT: Closed, minimally displaced, left intertrochanteric hip fracture. PLAN: After medical stabilization and evaluation, she will proceed for surgical fixation of her fracture. We will plan a short Intertan nailing of the fracture. I have discussed with the patient's family (daughter) about the pros and cons of surgery. These include the anesthesia risks, malunion, nonunion, infection, blood loss, nerve damage, blood clots, etc. All her questions were answered as well. They wished to proceed with surgery. Consent was signed by the daughter. The leg was marked. Questions were answered. TD: 09/07/2017 11:59 Originally signed 09/07/17@1338 REVISED acct/date on 09/10/2017 ruby MTDD
--- NOTE | 2017-09-07 13:34 | XRAY Report ---
EXAM: LEFT HIP RADIOGRAPHY INTRAOPERATIVE EXAM DATE: 09/07/2017. HISTORY: Intertrochanteric left hip fracture, reduction and fixation. COMPARISONS: Earlier the same day. TECHNIQUE: 3 fluoroscopic spot radiographs of the left hip. The fluoroscopy time was 20 seconds. IMPRESSION/FINDINGS: The intertrochanteric fracture has been fixed with a Chon's nail. Distal end of the compression screw is well within the margins of the femoral head. The fracture components are in near-anatomic alignment. The femoral stem is stabilized with a distal transverse screw. No unexpec nya findings of the surgery. [facility] Referring Provider Line: [phone] SITE ID: [id number]
[2017-09-07] MEDS: SODIUM CHLORIDE FLUSH 0.9% 10 ML SYRINGE IVP SCH (16:28)
[2017-09-07] MEDS: ASPIRIN 325 MG TABLET PO SCH (16:35)
[2017-09-07] MEDS: ENOXAPARIN 40 MG/0.4 ML SYRINGE SUBQ SCH (16:35)
[2017-09-07] MEDS: ceFAZolin 2 GM/50 ML 2 GM/50 ML BAG IV SCH (16:35)
[2017-09-07] MEDS: oxyCODONE 5 MG TABLET PO PRN (19:22)
[2017-09-07 20:02] LABS: HGB - HEMOGLOBIN 10.2 g/dL (12.0-16.0)
[2017-09-08] MEDS: ceFAZolin 2 GM/50 ML 2 GM/50 ML BAG IV SCH (00:22)
[2017-09-08] MEDS: SODIUM CHLORIDE 0.9% 1,000 ML IV SCH ×2 (00:22→11:39)
[2017-09-08] MEDS: SODIUM CHLORIDE FLUSH 0.9% 10 ML SYRINGE IVP SCH ×4 (00:23→23:57)
[2017-09-08] MEDS ORDERED: POTASSIUM CHLOR 10 MEQ/100 ML 10 MEQ/100 ML BAG IV SCH (01:00)
[2017-09-08 05:54] LABS: BASOPHILS # (AUTO) 0.1 10^3/uL (0.0-0.1); BASOPHILS % (AUTO) 0.7 %; EOSINOPHILS # (AUTO) 0.1 10^3/uL (0.0-0.7); EOSINOPHILS % (AUTO) 0.9 %; HGB - HEMOGLOBIN 9.1 g/dL (12.0-16.0); LYMPHOCYTES # (AUTO) 1.7 10^3/uL (1.5-3.5); LYMPHOCYTES % (AUTO) 13.1 %; MEAN CORPUSCULAR HEMOGLOBIN 29.3 pg (27.0-31.0); MEAN CORPUSCULAR HGB CONC 32.6 g/dL (32.0-36.0); MEAN CORPUSCULAR VOLUME 89.9 fL (81.0-99.0); MONOCYTES % (AUTO) 7.5 %; NEUTROPHILS % (AUTO) 77.8 %; PLT - PLATELET COUNT 205 10^3/uL (130-450); RED BLOOD COUNT 3.09 10^6/uL (4.20-5.40); RED CELL DISTRIBUTION WIDTH 13.3 % (12.0-15.0); WHITE BLOOD COUNT 12.9 x10^3/uL (4.8-10.8)
[2017-09-08 06:03] LABS: ALBUMIN 2.7 g/dL (3.2-5.5); ALBUMIN/GLOBULIN RATIO 1.2 (1.0-2.2); BILIRUBIN,TOTAL 0.9 mg/dL (0.2-1.0); CALCIUM 7.9 mg/dL (8.5-10.3); CREATININE 0.8 mg/dL (0.4-1.0); MAGNESIUM 1.9 mg/dL (1.7-2.8); PHOSPHORUS 2.8 mg/dL (2.5-4.6); TOTAL PROTEIN 4.9 g/dL (6.7-8.2)
[2017-09-08] MEDS: ACETAMINOPHEN 1,000 MG/100 ML 100 ML IV PRN ×2 (08:06→16:07)
[2017-09-08] MEDS: FAMOTIDINE 20 MG TABLET PO SCH (08:06)
[2017-09-08] MEDS: ASPIRIN 325 MG TABLET PO SCH ×2 (08:06→16:07)
[2017-09-08] MEDS: POLYETHYLENE GLYCOL 3350 17 GM PACKET PO SCH (08:37)
[2017-09-08] MEDS ORDERED: CALCIUM GLUCONATE 1,000 MG in SODIUM CHLORIDE 0.9% 50 ML IV ONE (09:00)
--- NOTE | 2017-09-08 09:44 | PROVIDER PROGRESS NOTE ---
Subjective - Prog Note Date Prog Note Date: 09/08/17 Prog Note Time: 09:30 - Subjective Pt reports feeling: Improved Objective - Vital Signs/Intake & Output Vital Signs: Vital Signs x48h Temp Pulse Resp BP Pulse Ox 09/08/17 08:00 37.4 C 93 22 134/60 H 97 09/08/17 05:29 36.7 C 91 16 132/64 H 94 Intake & Output: Intake & Output 09/05/17 09/06/17 09/07/17 09/08/17 23:59 23:59 23:59 23:59 Intake Total 2900.000 450 Output Total 1450 200 Balance 1450.000 250 - Objective General Appearance: positive: No acute distress Eyes Bilateral: positive: Normal inspection ENT: positive: No signs of dehydration Extremities: positive: No pedal edema, Other (Dressing intact) - Lab Results Fish Bones: 09/08/17 05:25 09/08/17 05:25 Other Labs: Lab Results x24hrs 09/08/17 09/08/17 09/07/17 Range/Units 05:25 05:25 19:51 WBC 12.9 H (4.8-10.8) x10^3/uL RBC 3.09 L (4.20-5.40) 10^6/uL Hgb 9.1 L 10.2 L (12.0-16.0) g/dL Hct 27.8 L 32.5 L (37.0-47.0) % MCV 89.9 (81.0-99.0) fL MCH 29.3 (27.0-31.0) pg MCHC 32.6 (32.0-36.0) g/dL RDW 13.3 (12.0-15.0) % Plt Count 205 (130-450) 10^3/uL MPV 8.0 (7.9-10.8) fL Neut # (Auto) 10.0 H (1.5-6.6) 10^3/uL Lymph # (Auto) 1.7 (1.5-3.5) 10^3/uL [place] # (Auto) 1.0 (0.0-1.0) 10^3/uL Eos # (Auto) 0.1 (0.0-0.7) 10^3/uL Baso # (Auto) 0.1 (0.0-0.1) 10^3/uL Absolute Nucleated RBC 0.00 x10^3/uL Nucleated RBC % 0.0 /100WBC Sodium 135 (135-145) mmol/L Potassium 4.0 (3.5-5.0) mmol/L Chloride 104 (101-111) mmol/L Carbon Dioxide 26 (21-32) mmol/L Anion Gap 5.0 L (6-13) BUN 12 (6-20) mg/dL Creatinine 0.8 (0.4-1.0) mg/dL Estimated GFR (MDRD) 69 L (>89) Glucose 113 H (70-100) mg/dL Calcium 7.9 L (8.5-10.3) mg/dL Phosphorus 2.8 (2.5-4.6) mg/dL Magnesium 1.9 (1.7-2.8) mg/dL Total Bilirubin 0.9 (0.2-1.0) mg/dL AST 19 (10-42) IU/L ALT 11 (10-60) IU/L Alkaline Phosphatase 60 (42-121) IU/L Total Protein 4.9 L (6.7-8.2) g/dL Albumin 2.7 L (3.2-5.5) g/dL Globulin 2.2 (2.1-4.2) g/dL Albumin/Globulin Ratio 1.2 (1.0-2.2) Assessment/Plan - Problem List (1) Intertrochanteric fracture of left hip Impression: Pt comfortable with plans. Will mobilize as tolerated. Qualifiers: Encounter type: initial encounter Fracture type: closed Fracture alignment: nondisplaced Qualified Code(s): S72.145A - Nondisplaced intertrochanteric fracture of left femur, initial encounter for closed fracture
[2017-09-08 14:17] LABS: HGB - HEMOGLOBIN 8.8 g/dL (12.0-16.0)
[2017-09-08] MEDS: ENOXAPARIN 40 MG/0.4 ML SYRINGE SUBQ SCH (16:07)
--- NOTE | 2017-09-08 16:20 | PROVIDER PROGRESS NOTE ---
Subjective - Prog Note Date Prog Note Date: 09/08/17 - Subjective Pt reports feeling: No change Subjective: pt is comfortable sitting in bed to eat breakfast, no acute distress. Pt state her pain is good controlled. No fever, chill, CP, SOB Current Medications - Current Medications Current Medications: Active Medications Acetaminophen (Tylenol) 650 mg PO Q4HR PRN PRN Reason: Pain 1 to 4 Aspirin (Rudi) 325 mg PO BIDWM [facility] Last Admin: 09/08/17 16:07 Dose: 325 mg Docusate Sodium (Colace 100mg Capsule) 100 mg PO BID PRN PRN Reason: Constipation Enoxaparin Sodium (Lovenox) 40 mg SUBQ 1600 [facility] Last Admin: 09/08/17 16:07 Dose: 40 mg Famotidine (Pepcid) 20 mg PO DAILY [facility] Last Admin: 09/08/17 08:06 Dose: 20 mg Acetaminophen (Ofirmev) 100 mls @ 400 mls/hr IV Q6HR PRN PRN Reason: PAIN Last Admin: 09/08/17 16:07 Dose: 400 mls/hr Sodium Chloride (Normal Saline 0.9%) 1,000 mls @ 100 mls/hr IV .Q10H [facility] Last Admin: 09/08/17 11:39 Dose: 100 mls/hr Morphine Sulfate (Morphine) 2 mg IVP Q2H PRN PRN Reason: Pain 8 to 10 Last Admin: 09/07/17 06:43 Dose: 2 mg Ondansetron HCl (Zofran Inj) 4 mg IVP Q6HR PRN PRN Reason: Nausea / Vomiting Oxycodone HCl (Roxicodone) 5 mg PO Q4HR PRN PRN Reason: Pain 5 to 7 Oxycodone HCl (Roxicodone) 10 mg PO Q4HR PRN PRN Reason: Pain 8 to 10 Last Admin: 09/07/17 19:22 Dose: 10 mg Polyethylene Glycol (Miralax) 17 gm PO DAILY [facility] Last Admin: 09/08/17 08:37 Dose: Not Given Prochlorperazine Edisylate (Compazine Inj) 10 mg IVP Q6HR PRN PRN Reason: Nausea / Vomiting Last Admin: 09/07/17 19:22 Dose: 10 mg Senna (Senokot) 17.2 mg PO Q12H PRN PRN Reason: Constipation Sodium Chloride (Normal Saline Flush 0.9%) 10 ml IVP 0100,0900,1700 [facility] Last Admin: 09/08/17 15:37 Dose: Not Given Sodium Chloride (Normal Saline Flush 0.9%) 10 ml IVP PRN PRN PRN Reason: NEEDED PER PROVIDER ORDERS Temazepam (Restoril) 15 mg PO QPM PRN PRN Reason: Insomnia Aspirin 81 mg PO DAILY 09/07/17 Cholecalciferol (Vitamin D3) [Vitamin D3] 1,000 unit PO DAILY 09/07/17 Multivitamin [Multivitamins] 1 each PO DAILY 09/07/17 [place]-3/Dha/Epa/Fish Oil [Fish Oil 1,000 mg Softgel] 1 each PO DAILY 09/07/17 Risperidone [Risperidone Odt] 0.25 mg PO BID 09/07/17 Vit A/Vit C/Vit E/Zinc/Copper [Preservision Areds Softgel] 2 each PO BID Acetaminophen [Tylenol Extra Strength] 1,000 mg PO DAILY 09/08/17 Calcium Carbonate [Calcium] 1,200 mg PO DAILY 09/08/17 Objective - Vital Signs/Intake & Output Reviewed Vital Signs: Yes Vital Signs: Vital Signs x48h Temp Pulse Pulse Pulse Resp BP BP 09/08/17 15:32 36.6 C 84 20 125/67 09/08/17 10:20 87 92 118/66 09/08/17 10:15 87 92 118/66 BP Pulse Ox 09/08/17 15:32 98 09/08/17 10:20 103/81 H 09/08/17 10:15 103/81 H Intake & Output: Intake & Output 09/05/17 09/06/17 09/07/17 09/08/17 23:59 23:59 23:59 23:59 Intake Total 2900.000 1890 Output Total 1450 550 Balance 9008.856 6055 - Objective General Appearance: positive: No acute distress, Alert. negative: Lethargic Eyes Bilateral: positive: Normal inspection, PERRL, No lid inflammation, Conjunctivae nml ENT: positive: ENT inspection nml, Pharynx nml, No signs of dehydration. negative: Purulent nasal drainage, Pharyngeal erythema, Oral lesions Neck: positive: Nml inspection, Thyroid nml, No JVD. negative: Trachea midline , Thyromegaly, Lymphadenopathy (R), Lymphadenopathy (L), Stiff neck, Carotid bruit, Swelling/bruising, Tracheal deviation Respiratory: positive: Chest non-tender, No respiratory distress, Breath sounds nml. negative: Wheezes, Rales, Rhonchi Cardiovascular: positive: Regular rate & rhythm, No murmur, No gallop. negative : Irregularly irregular, Extrasystoles, Tachycardia, Bradycardia, JVD present, Systolic murmur, Diastolic murmur Peripheral Pulses: 2+ Radial (R), 2+ Radial (L), 2+ Dorsalis pedis (R), 2+ Dorsalis pedis (L) Abdomen: positive: Non-tender, No organomegaly, Nml bowel sounds, No distention. negative: Tenderness, Guarding, Rebound Back: positive: Nml inspection. negative: CVA tenderness (R), CVA tenderness (L ) Skin: positive: Color nml, No rash, Warm, Dry. negative: Cyanosis, Diaphoresis , Pallor Extremities: positive: Non-tender. negative: Calf tenderness, Joint swelling, Monse's sign/cords Neurologic/Psychiatric: positive: Sensation nml, Mood/affect nml. negative: Sensory loss, Facial droop, Slurred/abnml speech, Depressed mood/affect - Lab Results Fish Bones: 09/08/17 14:09 09/08/17 05:25 Other Labs: Lab Results x24hrs 09/08/17 09/08/17 09/08/17 Range/Units 14:09 05:25 05:25 WBC 12.9 H (4.8-10.8) x10^3/uL RBC 3.09 L (4.20-5.40) 10^6/uL Hgb 8.8 L 9.1 L (12.0-16.0) g/dL Hct 27.2 L 27.8 L (37.0-47.0) % MCV 89.9 (81.0-99.0) fL MCH 29.3 (27.0-31.0) pg MCHC 32.6 (32.0-36.0) g/dL RDW 13.3 (12.0-15.0) % Plt Count 205 (130-450) 10^3/uL MPV 8.0 (7.9-10.8) fL Neut # (Auto) 10.0 H (1.5-6.6) 10^3/uL Lymph # (Auto) 1.7 (1.5-3.5) 10^3/uL [place] # (Auto) 1.0 (0.0-1.0) 10^3/uL Eos # (Auto) 0.1 (0.0-0.7) 10^3/uL Baso # (Auto) 0.1 (0.0-0.1) 10^3/uL Absolute Nucleated RBC 0.00 x10^3/uL Nucleated RBC % 0.0 /100WBC Sodium 135 (135-145) mmol/L Potassium 4.0 (3.5-5.0) mmol/L Chloride 104 (101-111) mmol/L Carbon Dioxide 26 (21-32) mmol/L Anion Gap 5.0 L (6-13) BUN 12 (6-20) mg/dL Creatinine 0.8 (0.4-1.0) mg/dL Estimated GFR (MDRD) 69 L (>89) Glucose 113 H (70-100) mg/dL Calcium 7.9 L (8.5-10.3) mg/dL Phosphorus 2.8 (2.5-4.6) mg/dL Magnesium 1.9 (1.7-2.8) mg/dL Total Bilirubin 0.9 (0.2-1.0) mg/dL AST 19 (10-42) IU/L ALT 11 (10-60) IU/L Alkaline Phosphatase 60 (42-121) IU/L Total Protein 4.9 L (6.7-8.2) g/dL Albumin 2.7 L (3.2-5.5) g/dL Globulin 2.2 (2.1-4.2) g/dL Albumin/Globulin Ratio 1.2 (1.0-2.2) 09/07/17 Range/Units 19:51 WBC (4.8-10.8) x10^3/uL RBC (4.20-5.40) 10^6/uL Hgb 10.2 L (12.0-16.0) g/dL Hct 32.5 L (37.0-47.0) % MCV (81.0-99.0) fL MCH (27.0-31.0) pg MCHC (32.0-36.0) g/dL RDW (12.0-15.0) % Plt Count (130-450) 10^3/uL MPV (7.9-10.8) fL Neut # (Auto) (1.5-6.6) 10^3/uL Lymph # (Auto) (1.5-3.5) 10^3/uL [place] # (Auto) (0.0-1.0) 10^3/uL Eos # (Auto) (0.0-0.7) 10^3/uL Baso # (Auto) (0.0-0.1) 10^3/uL Absolute Nucleated RBC x10^3/uL Nucleated RBC % /100WBC Sodium (135-145) mmol/L Potassium (3.5-5.0) mmol/L Chloride (101-111) mmol/L Carbon Dioxide (21-32) mmol/L Anion Gap (6-13) BUN (6-20) mg/dL Creatinine (0.4-1.0) mg/dL Estimated GFR (MDRD) (>89) Glucose (70-100) mg/dL Calcium (8.5-10.3) mg/dL Phosphorus (2.5-4.6) mg/dL Magnesium (1.7-2.8) mg/dL Total Bilirubin (0.2-1.0) mg/dL AST (10-42) IU/L ALT (10-60) IU/L Alkaline Phosphatase (42-121) IU/L Total Protein (6.7-8.2) g/dL Albumin (3.2-5.5) g/dL Globulin (2.1-4.2) g/dL Albumin/Globulin Ratio (1.0-2.2) ABX Reporting Has patient been on IV antibiotics over the past 48 hours?: No Assessment/Plan - Problem List (1) Hip fracture Impression: Conclusion/Plan: this is day one status post of hip repair pain control continue PT/OT, follow up the d/c recommendation continue H&H continue lab and vital monitor pt is on operation, will follow up after operation will have PT/OT evaluate and treat pain control monitor bleeding after operation Patient appears to have had a mechanical fall and presented to the ER with left hip pain. She was found to have a left intertrochanteric fracture. She needs the left intertrochanteric fracture to be repaired. The patient does not have any history of coronary artery disease, congestive heart failure, diabetes or stroke. According to the revised cardiac risk index the patient's risk of major cardiac event is 0.4%. Plan: N.p.o. Pain control with p.o. Tylenol, p.o. oxycodone and IV morphine Orthopedic surgery consult for surgical repair of the left intertrochanteric fracture DVT prophylaxis post surgery IV fluids PT consult Patient will likely need placement and will need social work consult. (2) Alzheimer's dementia Conclusion/Plan: stable, continue support Patient has severe Alzheimer's dementia and has very poor short-term memory. She cannot remember why she is in the hospital or what happened. Given her Alzheimer's dementia she runs a risk of delirium and sundowning while she is hospitalized. We will need to continually orient the patient and monitor for any delirium. We will continue the patient on her home dose of risperidone once it is confirmed by the pharmacy. (3) Hypertension Conclusion/Plan: stable, vital monitor The patient presents with hypertension and her blood pressure is quite elevated. It is assumed that this is likely elevated secondary to pain from her hip fracture. We expect the blood pressure will improve once we get her pain under control. If the patient's blood pressure continues to be elevated we will need to start her on an antihypertensive. She does not have any history of essential hypertension. We will monitor her blood pressure throughout the hospitalization. (4) GERD (gastroesophageal reflux disease) Conclusion/Plan: Patient has a history of GERD. We will place her on Pepcid daily. (5) lymphocytosis today WBC 12.9 is down from previous day. pt is no cough, fever, chill, or respiratory distress, UA is negative for UTI. it appear from pt's surgical distress. continue vital monitor, continue lab monitor Qualifiers: Encounter type: initial encounter Fracture type: closed Laterality: left Qualified Code(s): S72.002A - Fracture of unspecified part of neck of left femur, initial encounter for closed fracture
[2017-09-08] MEDS ORDERED: SODIUM CHLORIDE 0.9% 1,000 ML IV SCH (16:35)
[2017-09-08] MEDS: oxyCODONE 5 MG TABLET PO PRN (19:46)
[2017-09-08 22:13] LABS: HGB - HEMOGLOBIN 9.1 g/dL (12.0-16.0)
[2017-09-09] MEDS: oxyCODONE 5 MG TABLET PO PRN ×3 (04:21→20:23)
[2017-09-09 06:07] LABS: BASOPHILS # (AUTO) 0.1 10^3/uL (0.0-0.1); BASOPHILS % (AUTO) 0.8 %; EOSINOPHILS # (AUTO) 0.3 10^3/uL (0.0-0.7); EOSINOPHILS % (AUTO) 2.2 %; HGB - HEMOGLOBIN 7.9 g/dL (12.0-16.0); LYMPHOCYTES # (AUTO) 1.3 10^3/uL (1.5-3.5); MEAN CORPUSCULAR HEMOGLOBIN 28.8 pg (27.0-31.0); MEAN CORPUSCULAR HGB CONC 32.1 g/dL (32.0-36.0); MEAN CORPUSCULAR VOLUME 89.6 fL (81.0-99.0); MEAN PLATELET VOLUME 8.2 fL (7.9-10.8); MONOCYTES # (AUTO) 1.1 10^3/uL (0.0-1.0); MONOCYTES % (AUTO) 7.9 %; NEUTROPHILS # (AUTO) 10.5 10^3/uL (1.5-6.6); NEUTROPHILS % (AUTO) 79.1 %; PLT - PLATELET COUNT 204 10^3/uL (130-450); RED BLOOD COUNT 2.76 10^6/uL (4.20-5.40); RED CELL DISTRIBUTION WIDTH 13.2 % (12.0-15.0); WHITE BLOOD COUNT 13.3 x10^3/uL (4.8-10.8)
[2017-09-09 06:21] LABS: ALBUMIN 2.6 g/dL (3.2-5.5); BILIRUBIN,TOTAL 0.7 mg/dL (0.2-1.0); CALCIUM 7.8 mg/dL (8.5-10.3); CREATININE 0.7 mg/dL (0.4-1.0); TOTAL PROTEIN 5.1 g/dL (6.7-8.2)
[2017-09-09] MEDS: DOCUSATE SODIUM 100 MG CAPSULE PO SCH ×2 (08:40→20:23)
[2017-09-09] MEDS: ASPIRIN 325 MG TABLET PO SCH ×2 (08:40→16:47)
[2017-09-09] MEDS: FAMOTIDINE 20 MG TABLET PO SCH (08:40)
[2017-09-09] MEDS: SENNA 8.6 MG TABLET PO SCH ×2 (08:40→20:23)
[2017-09-09] MEDS: POLYETHYLENE GLYCOL 3350 17 GM PACKET PO SCH (08:40)
[2017-09-09] MEDS: SODIUM CHLORIDE FLUSH 0.9% 10 ML SYRINGE IVP SCH ×2 (08:56→15:40)
[2017-09-09] MEDS: CALCIUM CARB (OYSTER SHELL) 500 MG TABLET PO SCH (12:12)
[2017-09-09] MEDS: OMEGA-3 ACID ETHYL ESTERS 1 GM CAPSULE PO SCH (12:12)
[2017-09-09] MEDS: ENOXAPARIN 40 MG/0.4 ML SYRINGE SUBQ SCH (16:47)
--- NOTE | 2017-09-09 16:47 | PROVIDER PROGRESS NOTE ---
Subjective - Prog Note Date Prog Note Date: 09/09/17 Prog Note Time: 09:00 - Subjective Pt reports feeling: No change Subjective: Evelyn offers no complaints and is happy to stay one more night. She explains that she feels tired today. She denies SOB, chest pain, nausea, vomiting, diarrhea, anorexia or new cough. She believes her pain is well controlled. Current Medications - Current Medications Current Medications: Active Medications Acetaminophen (Tylenol) 650 mg PO Q4HR PRN PRN Reason: Pain 1 to 4 Last Admin: 09/08/17 19:46 Dose: 650 mg Aspirin (Rudi) 325 mg PO BIDWM [facility] Last Admin: 09/09/17 16:47 Dose: 325 mg Calcium Carbonate/Glycine (Oysco-500) 1,000 mg PO DAILY [facility] Last Admin: 09/09/17 12:12 Dose: 1,000 mg Cholecalciferol (Vitamin D3) 1,000 unit PO DAILY [facility] Docusate Sodium (Colace 100mg Capsule) 100 mg PO BID [facility] Last Admin: 09/09/17 08:40 Dose: 100 mg Enoxaparin Sodium (Lovenox) 40 mg SUBQ 1600 [facility] Last Admin: 09/09/17 16:47 Dose: 40 mg Famotidine (Pepcid) 20 mg PO DAILY [facility] Last Admin: 09/09/17 08:40 Dose: 20 mg Acetaminophen (Ofirmev) 100 mls @ 400 mls/hr IV Q6HR PRN PRN Reason: PAIN Last Infusion: 09/08/17 16:33 Dose: Infused Morphine Sulfate (Morphine) 2 mg IVP Q2H PRN PRN Reason: Pain 8 to 10 Last Admin: 09/07/17 06:43 Dose: 2 mg Multivitamins (Theragran) 1 tab PO DAILY [facility] [id number] Ethyl Esters (Lovaza) 1 gm PO DAILY [facility] Last Admin: 09/09/17 12:12 Dose: 1 gm Ondansetron HCl (Zofran Inj) 4 mg IVP Q6HR PRN PRN Reason: Nausea / Vomiting Oxycodone HCl (Roxicodone) 5 mg PO Q4HR PRN PRN Reason: Pain 5 to 7 Last Admin: 09/09/17 13:23 Dose: 5 mg Oxycodone HCl (Roxicodone) 10 mg PO Q4HR PRN PRN Reason: Pain 8 to 10 Last Admin: 09/07/17 19:22 Dose: 10 mg Patient Own Medication ( Preservision Areds Softgel) 2 each PO BID [facility] Polyethylene Glycol (Miralax) 17 gm PO DAILY [facility] Last Admin: 09/09/17 08:40 Dose: 17 gm Prochlorperazine Edisylate (Compazine Inj) 10 mg IVP Q6HR PRN PRN Reason: Nausea / Vomiting Last Admin: 09/07/17 19:22 Dose: 10 mg Risperidone (Risperdal) 0.25 mg PO BID [facility] Senna (Senokot) 17.2 mg PO Q12H [facility] Last Admin: 09/09/17 08:40 Dose: 17.2 mg Sodium Chloride (Normal Saline Flush 0.9%) 10 ml IVP 0100,0900,1700 [facility] Last Admin: 09/09/17 15:40 Dose: Not Given Sodium Chloride (Normal Saline Flush 0.9%) 10 ml IVP PRN PRN PRN Reason: NEEDED PER PROVIDER ORDERS Temazepam (Restoril) 15 mg PO QPM PRN PRN Reason: Insomnia Aspirin 81 mg PO DAILY 09/07/17 Cholecalciferol (Vitamin D3) [Vitamin D3] 1,000 unit PO DAILY 09/07/17 Multivitamin [Multivitamins] 1 each PO DAILY 09/07/17 [place]-3/Dha/Epa/Fish Oil [Fish Oil 1,000 mg Softgel] 1 each PO DAILY 09/07/17 Risperidone [Risperidone Odt] 0.25 mg PO BID 09/07/17 Vit A/Vit C/Vit E/Zinc/Copper [Preservision Areds Softgel] 2 each PO BID Acetaminophen [Tylenol Extra Strength] 1,000 mg PO DAILY 09/08/17 Calcium Carbonate [Calcium] 1,200 mg PO DAILY 09/08/17 Objective - Vital Signs/Intake & Output Reviewed Vital Signs: Yes Vital Signs: Vital Signs x48h Temp Pulse Resp BP Pulse Ox 09/09/17 15:14 36.3 C L 60 18 142/53 H 97 Intake & Output: Intake & Output 09/06/17 09/07/17 09/08/17 09/09/17 23:59 23:59 23:59 23:59 Intake Total 2900.000 3048.000 590 Output Total 1450 550 Balance 5087.642 6009.000 590 - Objective General Appearance: positive: No acute distress, Alert, Lethargic Eyes Bilateral: positive: Normal inspection Eyes: OU Conjunctivae pale ENT: positive: ENT inspection nml, Pharynx nml, Dry mucous membranes Neck: positive: Nml inspection, Thyroid nml, No JVD, Trachea midline Respiratory: positive: Chest non-tender, No respiratory distress, Other ( diminshed through out bilateral bases.) Peripheral Pulses: 1+ Radial (R), 1+ Radial (L) Abdomen: positive: Non-tender, Nml bowel sounds Back: positive: Nml inspection Skin: positive: No rash, Warm, Dry, Pallor Extremities: positive: Pedal edema (mild, BLE), Joint swelling, Other (Left hip dressing is CDI, with minimal drainage. Impaired left leg ROM, +sensation, + pulse, warm, and no evidence of erythema, or signs of infection.) Neurologic/Psychiatric: positive: Disoriented to time, Weakness, Sensory loss, Slurred/abnml speech, Depressed mood/affect, Other (very severe STM loss.) Reflexes: Bicep (R): 1+, Bicep (L): 1+ - Lab Results Fish Bones: 09/09/17 05:46 09/09/17 05:46 Other Labs: Lab Results x24hrs 09/09/17 09/09/17 09/08/17 Range/Units 05:46 05:46 22:04 WBC 13.3 H (4.8-10.8) x10^3/uL RBC 2.76 L (4.20-5.40) 10^6/uL Hgb 7.9 L 9.1 L (12.0-16.0) g/dL Hct 24.7 L 28.4 L (37.0-47.0) % MCV 89.6 (81.0-99.0) fL MCH 28.8 (27.0-31.0) pg MCHC 32.1 (32.0-36.0) g/dL RDW 13.2 (12.0-15.0) % Plt Count 204 (130-450) 10^3/uL MPV 8.2 (7.9-10.8) fL Neut # (Auto) 10.5 H (1.5-6.6) 10^3/uL Lymph # (Auto) 1.3 L (1.5-3.5) 10^3/uL [place] # (Auto) 1.1 H (0.0-1.0) 10^3/uL Eos # (Auto) 0.3 (0.0-0.7) 10^3/uL Baso # (Auto) 0.1 (0.0-0.1) 10^3/uL Absolute Nucleated RBC 0.00 x10^3/uL Nucleated RBC % 0.0 /100WBC Sodium 135 (135-145) mmol/L Potassium 3.6 (3.5-5.0) mmol/L Chloride 106 (101-111) mmol/L Carbon Dioxide 24 (21-32) mmol/L Anion Gap 5.0 L (6-13) BUN 12 (6-20) mg/dL Creatinine 0.7 (0.4-1.0) mg/dL Estimated GFR (MDRD) 80 L (>89) Glucose 111 H (70-100) mg/dL Calcium 7.8 L (8.5-10.3) mg/dL Total Bilirubin 0.7 (0.2-1.0) mg/dL AST 24 (10-42) IU/L ALT 11 (10-60) IU/L Alkaline Phosphatase 57 (42-121) IU/L Total Protein 5.1 L (6.7-8.2) g/dL Albumin 2.6 L (3.2-5.5) g/dL Globulin 2.5 (2.1-4.2) g/dL Albumin/Globulin Ratio 1.0 (1.0-2.2) - Diagnostic Imaging Diagnostic Imaging Results: positive: Final report reviewed ABX Reporting Has patient been on IV antibiotics over the past 48 hours?: No Assessment/Plan - Problem List (1) Intertrochanteric fracture of left hip Impression: The patient presented to the ED after an unwitnessed fall out of bed at [facility], a memory care unit. An x-ray of her left hip showed a left intertrochanteric fracture. The patient underwent a left hip repair with Dr. Malhotra on 09/07/2017, that was not thought to have any unforeseen complications as per chart review. Blood loss was charted as 100ml. Plan: Ongoing physical therapy, frequent nursing care, including monitoring left hip surgical site dressing, and fall precautions. Qualifiers: Encounter type: initial encounter Fracture type: closed Fracture alignment: nondisplaced Qualified Code(s): S72.145A - Nondisplaced intertrochanteric fracture of left femur, initial encounter for closed fracture (2) Alzheimer's dementia Impression: The patient converses well, although continues to be lethargic upon exam today. She admits to being a poor historian and cannot recall the events leading to this hospital stay. She does acknowledge that she has broken her left hip. She is very pleasant and appropriate otherwise. She is prescribed Risperidone at home for sleep, which is continued. Plan: Continue fall precautions and I appreciate social work efforts to arrange for a rehab stay. Qualifiers: Alzheimer's disease onset: unspecified onset Dementia behavioral disturbance: without behavioral disturbance Qualified Code(s): G30.9 - Alzheimer's disease, unspecified; F02.80 - Dementia in other diseases classified elsewhere without behavioral disturbance; F02.80 - Dementia in other diseases classified elsewhere without behavioral disturbance; F02.80 - Dementia in other diseases classified elsewhere without behavioral disturbance (3) Hypertension Impression: The patient is not prescribed any antihypertensives at home and the last recorded blood pressure was 137/60. Plan: Continue to monitor vital signs. Qualifiers: Hypertension type: other secondary hypertension Qualified Code(s): I15.8 - Other secondary hypertension (4) Anemia Impression: Upon presentation to the ED after a fall, the patient's labs show a hemoglobin of 12.8. The patient underwent a left hip repair and has been slightly trending downward since that time. Today she is noted to have a reduced hemoglobin of just 7.9. She appears pale, lethargic, but with normal vital signs. She is not opposed to receiving blood products and denies a restorationist restriction to this. Plan: Ordering type and screen and plan to obtain iron studies, and transfuse 1 unit PRBCs given she is symptomatic. Qualifiers: Anemia type: unspecified type Qualified Code(s): D64.9 - Anemia, unspecified
[2017-09-09] MEDS ORDERED: diphenhydrAMINE 25 MG CAPSULE PO ONE (17:13)
[2017-09-09 17:43] LABS: % IRON SATURATION 4 % (20-50); IRON 9 ug/dL (28-170); TOTAL IRON BINDING CAPACITY 231 ug/dL (250-450); TRANSFERRIN 165 mg/dL (192-382)
--- NOTE | 2017-09-09 18:52 | PROVIDER PROGRESS NOTE ---
Subjective - Prog Note Date Prog Note Date: 09/09/17 Prog Note Time: 06:50 - Subjective Pt reports feeling: No change Objective - Vital Signs/Intake & Output Vital Signs: Vital Signs x48h Temp Pulse Resp BP Pulse Ox 09/09/17 15:14 36.3 C L 60 18 142/53 H 97 Intake & Output: Intake & Output 09/06/17 09/07/17 09/08/17 09/09/17 23:59 23:59 23:59 23:59 Intake Total 2900.000 3048.000 850 Output Total 1450 550 Balance 8379.538 1227.000 850 - Objective General Appearance: positive: No acute distress Eyes Bilateral: positive: Normal inspection - Lab Results Fish Bones: 09/09/17 05:46 09/09/17 05:46 Other Labs: Lab Results x24hrs 09/09/17 09/09/17 09/09/17 Range/Units 05:46 05:46 05:46 WBC (4.8-10.8) x10^3/uL RBC (4.20-5.40) 10^6/uL Hgb (12.0-16.0) g/dL Hct (37.0-47.0) % MCV (81.0-99.0) fL MCH (27.0-31.0) pg MCHC (32.0-36.0) g/dL RDW (12.0-15.0) % Plt Count (130-450) 10^3/uL MPV (7.9-10.8) fL Neut # (Auto) (1.5-6.6) 10^3/uL Lymph # (Auto) (1.5-3.5) 10^3/uL [place] # (Auto) (0.0-1.0) 10^3/uL Eos # (Auto) (0.0-0.7) 10^3/uL Baso # (Auto) (0.0-0.1) 10^3/uL Absolute Nucleated RBC x10^3/uL Nucleated RBC % /100WBC Sodium 135 (135-145) mmol/L Potassium 3.6 (3.5-5.0) mmol/L Chloride 106 (101-111) mmol/L Carbon Dioxide 24 (21-32) mmol/L Anion Gap 5.0 L (6-13) BUN 12 (6-20) mg/dL Creatinine 0.7 (0.4-1.0) mg/dL Estimated GFR (MDRD) 80 L (>89) Glucose 111 H (70-100) mg/dL Calcium 7.8 L (8.5-10.3) mg/dL Iron 9 L (28-170) ug/dL TIBC 231 L (250-450) ug/dL % Saturation 4 L (20-50) % Transferrin 165 L (192-382) mg/dL Total Bilirubin 0.7 (0.2-1.0) mg/dL AST 24 (10-42) IU/L ALT 11 (10-60) IU/L Alkaline Phosphatase 57 (42-121) IU/L Total Protein 5.1 L (6.7-8.2) g/dL Albumin 2.6 L (3.2-5.5) g/dL Globulin 2.5 (2.1-4.2) g/dL Albumin/Globulin Ratio 1.0 (1.0-2.2) Blood Type Recheck O POSITIVE 09/09/17 09/08/17 Range/Units 05:46 22:04 WBC 13.3 H (4.8-10.8) x10^3/uL RBC 2.76 L (4.20-5.40) 10^6/uL Hgb 7.9 L 9.1 L (12.0-16.0) g/dL Hct 24.7 L 28.4 L (37.0-47.0) % MCV 89.6 (81.0-99.0) fL MCH 28.8 (27.0-31.0) pg MCHC 32.1 (32.0-36.0) g/dL RDW 13.2 (12.0-15.0) % Plt Count 204 (130-450) 10^3/uL MPV 8.2 (7.9-10.8) fL Neut # (Auto) 10.5 H (1.5-6.6) 10^3/uL Lymph # (Auto) 1.3 L (1.5-3.5) 10^3/uL [place] # (Auto) 1.1 H (0.0-1.0) 10^3/uL Eos # (Auto) 0.3 (0.0-0.7) 10^3/uL Baso # (Auto) 0.1 (0.0-0.1) 10^3/uL Absolute Nucleated RBC 0.00 x10^3/uL Nucleated RBC % 0.0 /100WBC Sodium (135-145) mmol/L Potassium (3.5-5.0) mmol/L Chloride (101-111) mmol/L Carbon Dioxide (21-32) mmol/L Anion Gap (6-13) BUN (6-20) mg/dL Creatinine (0.4-1.0) mg/dL Estimated GFR (MDRD) (>89) Glucose (70-100) mg/dL Calcium (8.5-10.3) mg/dL Iron (28-170) ug/dL TIBC (250-450) ug/dL % Saturation (20-50) % Transferrin (192-382) mg/dL Total Bilirubin (0.2-1.0) mg/dL AST (10-42) IU/L ALT (10-60) IU/L Alkaline Phosphatase (42-121) IU/L Total Protein (6.7-8.2) g/dL Albumin (3.2-5.5) g/dL Globulin (2.1-4.2) g/dL Albumin/Globulin Ratio (1.0-2.2) Blood Type Recheck Assessment/Plan - Problem List (1) Intertrochanteric fracture of left hip Impression: Pt comfortable with plan. We will continue to mobilize. Obtaining venous access for transfusion now. Qualifiers: Encounter type: initial encounter Fracture type: closed Fracture alignment: nondisplaced Qualified Code(s): S72.145A - Nondisplaced intertrochanteric fracture of left femur, initial encounter for closed fracture
[2017-09-09] MEDS: risperiDONE 0.25 MG TABLET PO SCH (20:23)
[2017-09-09] MEDS: PRESERVISION AREDS PO SCH (20:24)
[2017-09-10] MEDS: SODIUM CHLORIDE FLUSH 0.9% 10 ML SYRINGE IVP SCH ×2 (03:07→08:12)
[2017-09-10 06:08] LABS: LYMPHOCYTES % (AUTO) 13.5 %; MEAN PLATELET VOLUME 8.2 fL (7.9-10.8); RED CELL DISTRIBUTION WIDTH 13.4 % (12.0-15.0)
[2017-09-10 06:15] LABS: BASOPHILS % (AUTO) 1.1 %; EOSINOPHILS % (AUTO) 2.9 %; HGB - HEMOGLOBIN 10.1 g/dL (12.0-16.0); MEAN CORPUSCULAR HEMOGLOBIN 29.1 pg (27.0-31.0); MEAN CORPUSCULAR HGB CONC 32.8 g/dL (32.0-36.0); MEAN CORPUSCULAR VOLUME 88.9 fL (81.0-99.0); MONOCYTES % (AUTO) 8.8 %; NEUTROPHILS % (AUTO) 73.7 %; PLT - PLATELET COUNT 257 10^3/uL (130-450); RED BLOOD COUNT 3.46 10^6/uL (4.20-5.40); WHITE BLOOD COUNT 13.5 x10^3/uL (4.8-10.8)
[2017-09-10 06:18] LABS: ABNORMAL LYMPHS % (MANUAL) 0 %
[2017-09-10 06:39] LABS: BAND NEUTROPHILS % (MANUAL) 2 %; BASOPHILS # (MANUAL) 0.1 10^3/uL (0-0.1); BASOPHILS % (MANUAL) 1 %; DIFFERENTIAL COMMENT MANUAL DIFFERENTIAL; LYMPHOCYTES # (MANUAL) 0.9 10^3/uL (1.5-3.5); LYMPHOCYTES % (MANUAL) 7 %; MONOCYTES # (MANUAL) 1.1 10^3/uL (0.0-1.0); NEUTROPHILS # (MANUAL) 11.3 10^3/uL (1.5-6.6); NEUTROPHILS % (MANUAL) 82 %; PLATELET ESTIMATE, MANUAL NORMAL (130-450,000) (NORMAL); RBC MORPHOLOGY (MULTIPLE) NORMAL APPEARANCE (NORMAL)
[2017-09-10] MEDS: risperiDONE 0.25 MG TABLET PO SCH (08:10)
[2017-09-10] MEDS: FAMOTIDINE 20 MG TABLET PO SCH (08:10)
[2017-09-10] MEDS: DOCUSATE SODIUM 100 MG CAPSULE PO SCH (08:10)
[2017-09-10] MEDS: SENNA 8.6 MG TABLET PO SCH (08:10)
[2017-09-10] MEDS: OMEGA-3 ACID ETHYL ESTERS 1 GM CAPSULE PO SCH (08:10)
[2017-09-10] MEDS: ASPIRIN 325 MG TABLET PO SCH (08:11)
[2017-09-10] MEDS: POLYETHYLENE GLYCOL 3350 17 GM PACKET PO SCH (08:11)
[2017-09-10] MEDS: PRESERVISION AREDS PO SCH (08:11)
[2017-09-10] MEDS: CALCIUM CARB (OYSTER SHELL) 500 MG TABLET PO SCH (08:11)
[2017-09-10] MEDS ORDERED: ACETAMINOPHEN 500 MG TABLET PO SCH (09:00)
[2017-09-10] MEDS ORDERED: MULTIVITAMIN TABLET PO SCH (09:00)
[2017-09-10] MEDS ORDERED: CHOLECALCIFEROL 1,000 UNIT TABLET PO SCH (09:00)
[2017-09-10] MEDS ORDERED: ASPIRIN CHEW 81 MG TABLET PO SCH (09:00)
--- NOTE | 2017-09-10 09:00 | Discharge Plan ---
"Discharge Plan for SNF / [facility] - DC Plan and Transition Orders Disposition: 03 SNF DC/Xfer Condition: Good SNF Transition Orders: Admit to: [facility] under the care of Samy Dhillon Discharge Diagnosis: Intertrochanteric fracture of the left femur, status post left hip repair, Alzheimer's disease, Essential HTN, GERD, and anemia. Medicare Certification: I certify that [facility] halfway care is medically necessary on a continuing basis for any of the conditions for which she/he is receiving care during hospitalization. Notify PCP of admission and forward orders to primary provider for signature. Weight on admission and monthly. Call PCP immediately if weight increases by 10 pounds or if patient develops dyspnea, chest pain/tightness or edema. House Bowel Program: yes If no BM after 2 days, nurse may give M.O.M. 30ml PO PRN and /or ducolax Supp 1 ID and /or WENDIE 250mg P.O., and/or senna 1-2 tabs PO. On day 3 nurse may give repeat above order until residents constipation is resolved. Immunizations: Annual Influenza Vaccine: yes. (between Dec 06 and July 05. ) Unless allergy or already given Two-Step PPD: yes per [facility] [id number] or appropriate documentation of approved exceptions. Treatments & Other Orders: Continue with physical therapy and fall precautions. Continue on medications, with an iron supplement. Take narcotics prior to PT for better tolerance. Oxygen Orders: No oxygen needed; May use 1-2L per nasal cannula for oxygen saturation less than 90%, PRN. Lab Tests or X-Rays Orders: Follow up with ortho-surgery in ~ 2 weeks for x-rays , dressing checks, etc. Orthopedic Orders: Leave left hip dressings in place; as per Orthopedic recommendations. Medications: PLEASE REFER TO THE DISCHARGE MEDICATION LIST. Allergies and Adverse Reactions: Allergies Allergy/AdvReac Type Severity Reaction Status Date / Time No Known Drug Allergies Allergy Verified 09/07/17 00:00 - Medications New Prescriptions: oxyCODONE [Roxicodone] 5 mg PO Q4HR PRN #21 tablet PRN Reason: Pain 5 to 7 Acetaminophen [Tylenol] 650 mg PO TID #90 tablet Aspirin [Rudi] 325 mg PO DAILY #30 tablet Ferrous Sulfate 325 mg PO BID #60 tablet Senna [Senokot] 17.2 mg PO Q12H #60 tablet - Diet Type: Geriatric Texture: Regular Liquids: Thin May have monthly special meal: Yes - Therapies | Activity Therapy: Evaluation | Treat if indicated: Speech, PT, OT Rehabilitation Potential: Maximize functional status, Return to independent living, Maintain present ADL Functional Activity: Wt Bearing as Tolerated Weight Bearing: Full Weight Assistance Devices: Walker"
[2017-09-10] MEDS ORDERED: FUROSEMIDE 20 MG TABLET PO SCH (09:17)
[2017-09-10] MEDS ORDERED: MAGNESIUM OXIDE 400 MG TABLET PO SCH (09:18)
--- NOTE | 2017-09-10 09:22 | DISCHARGE SUMMARY ---
Discharge Summary Admit Date: 09/07/17 Discharge Date: 09/10/17 Discharging Provider: ALEX Goss Primary Care Provider: Samy Dhillon Condition at Discharge: Good Discharge Disposition: SNF DC/Xfer Discharge Facility Name: [facility] - DIAGNOSES Admission Diagnoses: Displaced intertrochanteric fracture of left femur, initial encounter for closed fracture (S72.142A) Alzheimer's disease, unspecified (G30.9) Essential (primary) hypertension (I10) Gastro-esophageal reflux disease without esophagitis (K21.9) Discharge Diagnoses with Status of Each Condition: Intertrochanteric fracture of left hip (S72.142A) -new on this admit, stable, now post op. Status post fracture of left hip (Z87.81) -stable, PT to continue. Alzheimer's dementia (G30.9) -chronic, stable. Hypertension (I10) -chronic, stable. GERD (gastroesophageal reflux disease) (K21.9) -chronic, stable. Iron deficiency anemia (D50.9)- treatment to continue with iron supplement. - HPI History of Present Illness: HPI per Dr. Escalante: Patient is an 82-year-old female who lives at [facility] unit with a past medical history significant for Alzheimer's dementia, macular degeneration, GERD and urinary incontinence and presents to the emergency department with a chief complaint of left hip pain. The patient was previously living in [place], [place] and was brought up here by her daughter after the patient's last month. She has been placed at a memory care unit in [facility]. The patient has severe short-term memory loss and is unable to provide any history. She cannot even remember why she is here or what happened to her. According to the patient's daughter the patient had gotten up to go to the bathroom late this evening at [facility]. According to the staff at [facility] they helped her get to the bathroom as they do normally. They then placed her back in her bed. They assume that she tried to get back out of bed because she was confused and was putting on her clothing when she must have tripped and fallen. She was found down on the floor unable to get up and in pain. She was confused and unable to provide any history of what had happened. EMS was called and the patient was brought into the emergency department. The patient is demented but she denies any headaches, blurred vision, runny nose , sore throat, nasal congestion, difficulty swallowing, fevers, chills, chest pain, shortness of air, orthopnea, PND, increased lower extremity swelling, palpitations, abdominal pain, nausea, vomiting, diarrhea, constipation, urinary urgency, urinary frequency, dysuria, neck stiffness, changes in appetite, recent unintentional weight loss, hair loss, skin changes, night sweats or any focal neurologic deficits. The patient does admit to pain in the left hip and muscle spasms around the area. On presentation to the emergency department the patient was afebrile and slightly bradycardic. The patient was hypertensive but was not in any respiratory distress. When the patient was moved in the emergency department she was in distress and complaining of pain. Once the patient settled down her pain was controlled and she did not ask for anything for her pain. The patient had a externally rotated and shortened left lower extremity. The patient underwent a x-ray of her left hip which showed a left intertrochanteric fracture. The patient underwent routine lab work which showed a WBC of 14.5 with normal electrolytes and a normal INR. The patient's urine analysis was negative. The emergency room physician spoke with the orthopedic surgeon Dr. Malhotra that the patient be admitted by the service and that he would operate on in the morning. - HOSPITAL COURSE Hospital Course: The following diagnoses were prevalent during this hospital stay: (1) Intertrochanteric fracture of left hip-closed The patient presented to the ED after an unwitnessed fall out of bed at [facility], a memory care unit. An x-ray of her left hip showed a left intertrochanteric fracture. The patient underwent a left hip repair with Dr. Malhotra on 09/07/2017, that was not thought to have any unforeseen complications as per chart review. Upon exam, the patient had normal expected finding such as no erythema around left hip dressing, very minimal drainage and no pain at rest. Blood loss was charted as 100ml. The patient underwent at least daily, ongoing physical therapy, frequent nursing care, including monitoring left hip surgical site dressing, and fall precautions while hospitalized. As per physical therapy recommendations, further therapy at a skilled rehab center is necessary post op. (2) Status post left femur fracture-post op As per most recent physical therapy recommendations per chart review and reports from nursing, "Patient demonstrates a positive trendelenberg that increases with gait and pain with fatigue. Patient shows good potential for further rehab at SNF and rehab with daily progrression of gait and strength to the left hip. (3) Alzheimer's dementia-without behavioral disturbance The patient's primary residence has been the [facility]-a locked and secured memory care unit on [place]. The patient converses well, and demonstrates improved energy and attention upon exam today. She admits to being a poor historian and cannot recall the events leading to this hospital stay. She does acknowledge that she has broken her left hip. She is very pleasant and appropriate otherwise. She is prescribed Risperidone at home for sleep, which is continued. The patient was on continuous fall precautions and I appreciate social work efforts to arrange for a rehab stay. [facility] nursing rehab has accepted this patient and will be discharged today as she is medically and mentally stable. (4) Hypertension The patient is not prescribed any antihypertensives at home. Upon admission the patient was noted to be hypertensive that has now resolved. This is considered secondary HTN as it has resolved and this was likely related to fluid overload and the stress caused by this acute left hip fracture. Prior to discharge, her blood pressure was recorded as 119/66, after a one time dose of PO lasix based on elevated BNP levels. (5) Anemia-iron deficiency Upon presentation to the ED after a fall, the patient's labs show a hemoglobin of 12.8. The patient underwent a left hip repair and has been slightly trending downward since that time. She was noted to have a reduced hemoglobin of just 7.9. She appeared pale, lethargic, but with normal vital signs. She was not opposed to receiving blood products and denies a rastafari restriction to this, and consent was obtained via POA for this. The patient was transfused 1 unit of PRBCs and her hemoglobin nicely improved to 10.1 prior to discharge. Iron studies revealed low levels, so the patient was started on ferrous sulfate to be given BID. Disposition: The patient did no require oxygen at the time of discharge and was much improved after her blood transfusion. She has been doing better each day with PT sessions. She is being transported via W/C van to [facility], family updated. - ALLERGIES Allergies/Adverse Reactions: Allergies Allergy/AdvReac Type Severity Reaction Status Date / Time No Known Drug Allergies Allergy Verified 09/07/17 00:00 - MEDICATIONS Home Medications: Ambulatory Orders Medication Instructions Recorded Confirmed Aspirin 81 mg PO DAILY 09/07/17 09/08/17 Cholecalciferol (Vitamin D3) 1,000 unit PO DAILY 09/07/17 09/08/17 [Vitamin D3] Multivitamin [Multivitamins] 1 each PO DAILY 09/07/17 09/08/17 [place]osey-3/Dha/Epa/Fish Oil [Fish Oil 1 each PO DAILY 09/07/17 09/08/17 1,000 mg Softgel] Risperidone [Risperidone Odt] 0.25 mg PO BID 09/07/17 09/08/17 Vit A/Vit C/Vit E/Zinc/Copper 2 each PO BID 09/07/17 09/08/17 [Preservision Areds Softgel] Acetaminophen [Tylenol Extra 1,000 mg PO DAILY 09/08/17 09/08/17 Strength] Calcium Carbonate [Calcium] 1,200 mg PO DAILY 09/08/17 09/08/17 Acetaminophen [Tylenol] 650 mg PO TID #90 tablet 09/10/17 Aspirin [Rudi] 325 mg PO DAILY #30 tablet 09/10/17 Ferrous Sulfate 325 mg PO BID #60 tablet 09/10/17 Senna [Senokot] 17.2 mg PO Q12H #60 tablet 09/10/17 oxyCODONE [Roxicodone] 5 mg PO Q4HR PRN #21 tablet 09/10/17 - PHYSICAL EXAM AT DISCHARGE General Appearance: positive: No acute distress, Alert Eyes Bilateral: positive: Normal inspection, PERRL ENT: positive: ENT inspection nml, Pharynx nml, No signs of dehydration Neck: positive: Nml inspection, Thyroid nml, No JVD, Trachea midline Respiratory: positive: Chest non-tender, No respiratory distress, Breath sounds nml Cardiovascular: positive: Irregularly irregular, Systolic murmur, Decreased pulse(s) Peripheral Pulses: positive: 1+ Abdomen: positive: Non-tender, Nml bowel sounds, Other (rounded, soft.) Back: positive: Nml inspection Skin: positive: No rash, Warm, Dry, Pallor Extremities: positive: Pedal edema (mild, dependent. left hip with a dressing CDI.), Joint swelling Neurologic/Psychiatric: positive: Disoriented to place, Disoriented to time, Weakness, Sensory loss, Depressed mood/affect, Other (baseline advanced dementia.) Reflexes: Bicep (R): 2+, Bicep (L): 2+, Ankle (R): 2+, Ankle (L): 1+ - LABS Result Diagrams: 09/10/17 05:55 09/09/17 05:46 - DIAGNOSTIC IMAGING Diagnostic Imaging Results: Final report reviewed Diagnostic Imaging Results Comments: EXAM: LEFT HIP AND PELVIS RADIOGRAPHY EXAM DATE: 09/07/2017 01:08 AM. HISTORY: Fall, pain. COMPARISONS: None. TECHNIQUE: 1 view of the pelvis and 1 view of the hip. FINDINGS: Bones: There is an intratrochanteric fracture of the left hip, mildly foreshortened. Joints: Mild osteoarthritis of the hips. Soft Tissues: Lateral soft tissue swelling. IMPRESSION: Left intratrochanteric hip fracture. EXAM: CHEST RADIOGRAPHY EXAM DATE: 09/07/2017 01:10 AM. CLINICAL HISTORY: Ground level fall. COMPARISON: None. TECHNIQUE: 1 view. FINDINGS: Lungs/Pleura: No focal opacities evident. No pleural effusion. No pneumothorax. Mediastinum: Within exam limitations, the cardiomediastinal contour is normal. Other: None. IMPRESSION: No evidence of acute cardiopulmonary disease. EXAM: LEFT HIP RADIOGRAPHY INTRAOPERATIVE EXAM DATE: 09/07/2017. HISTORY: Intertrochanteric left hip fracture, reduction and fixation. COMPARISONS: Earlier the same day. TECHNIQUE: 3 fluoroscopic spot radiographs of the left hip. The fluoroscopy time was 20 seconds. IMPRESSION/FINDINGS: The intertrochanteric fracture has been fixed with a Chon's nail. Distal end of the compression screw is well within the margins of the femoral head. The fracture components are in near-anatomic alignment. The femoral stem is stabilized with a distal transverse screw. No unexpected findings of the surgery. - FOLLOW UP Follow Up: Disposition: 03 SNF DC/Xfer Condition: Good SNF Transition Orders: Admit to: [facility] under the care of Samy Dhillon Discharge Diagnosis: Intertrochanteric fracture of the left femur, status post left hip repair, Alzheimer's disease, Essential HTN, GERD, and anemia. - TIME SPENT Time Spent in Discharge (Minutes): 60
[2017-09-10] MEDS ORDERED: FERROUS SULFATE 325 MG TABLET PO SCH (10:00)
[2017-09-10 11:11] VITALS: BP 118/66
[2017-09-10] MEDS: oxyCODONE 5 MG TABLET PO PRN (11:55)
--- NOTE | 2017-09-15 10:47 | XRAY Report ---
[facility]: Fluoroscopy time only, no images submitted for interpretation. Fluoroscopy time 0 minutes, 20 seconds. TOY
== END 2017-09-10 13:35 | DRG 482 ==
LOC: EDUNIT# → ED 23:54 → MS2 09-07 01:26
PROVIDERS: ADMIT Internal Medicine; ATTEND Nurse Practitioner
PROC: 0QS736Z Reposition Left Upper Femur with Intramedullary Internal Fixation Device, Percutaneous Approach (ICD-10-PCS; principal; 2017-09-07 09:00)
PROC: 30233N1 Transfusion of Nonautologous Red Blood Cells into Peripheral Vein, Percutaneous Approach (ICD-10-PCS; 2017-09-09)
DX: S72.142A Displaced intertrochanteric fracture of left femur, initial encounter for closed fracture (principal); W01.0XXA Fall on same level from slipping, tripping and stumbling without subsequent striking against object, initial encounter; W06.XXXA Fall from bed, initial encounter; F03.90 Unspecified dementia, unspecified severity, without behavioral disturbance, psychotic disturbance, mood disturbance, and anxiety; Y92.122 Bedroom in nursing home as the place of occurrence of the external cause; G30.9 Alzheimer's disease, unspecified; F02.80 Dementia in other diseases classified elsewhere, unspecified severity, without behavioral disturbance, psychotic disturbance, mood disturbance, and anxiety; I15.8 Other secondary hypertension; K21.9 Gastro-esophageal reflux disease without esophagitis; D50.9 Iron deficiency anemia, unspecified; R32 Unspecified urinary incontinence; Z66 Do not resuscitate; Z79.899 Other long term (current) drug therapy; Z91.81 History of falling; Z79.82 Long term (current) use of aspirin
CPT/HCPCS: 36415; 51702; 71045; 80048; 80053; 81001; 81003; 83036; 83540; 83735; 84100; 84443; 84466; 85014; 85018; 85025; 85610; 85730; 86850; 86900; 86901; 86920; 87086; 93005; 99283; 99284

== ENCOUNTER 2018-04-08 13:37 | Emergency (ER) | payer MEDICARE ==
--- NOTE | 2018-04-08 14:49 | ED Physician Documentation ---
PD HPI ABD PAIN - Stated complaint Stated Complaint: BLOODY STOOL - Chief complaint Chief Complaint: Abd Pain - History obtained from History obtained from: Patient, Family (daughter) - History of Present Illness Timing - onset: Other (She has been having ongoing rectal bleeding and dark stools for about a month that are getting worse. There is no associated pain. They do not know when her last colonoscopy was. 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 - Present Medications Home Medications: Ambulatory Orders Medication Instructions Recorded Confirmed Aspirin 81 mg PO DAILY 09/07/17 04/08/18 Cholecalciferol (Vitamin D3) 1,000 unit PO DAILY 09/07/17 04/08/18 [Vitamin D3] Multivitamin [Multivitamins] 1 each PO DAILY 09/07/17 04/08/18 [place]-3/Dha/Epa/Fish Oil [Fish Oil 1 each PO DAILY 09/07/17 04/08/18 1,000 mg Softgel] Vit A/Vit C/Vit E/Zinc/Copper 2 each PO BID 09/07/17 04/08/18 [Preservision Areds Softgel] Acetaminophen [Tylenol Extra 1,000 mg PO DAILY 09/08/17 04/08/18 Strength] Calcium Carbonate [Calcium] 1,200 mg PO DAILY 09/08/17 09/08/17 Ferrous Sulfate 325 mg PO BID #60 tablet 09/10/17 04/08/18 Senna [Senokot] 17.2 mg PO Q12H #60 tablet 09/10/17 04/08/18 Lidocaine [Recticare] 1 gm TP QID PRN #4 ahfu 04/08/18 Saccharomyces Boulardii [Florastor] 04/08/18 - Allergies Allergies/Adverse Reactions: Allergies Allergy/AdvReac Type Severity Reaction Status Date / Time No Known Drug Allergies Allergy Verified 04/08/18 13:58 - Social History Does the pt smoke?: No Smoking Status: Never smoker Does the pt drink ETOH?: No Does the pt have substance abuse?: No - Immunizations Immunizations are current?: Yes - POLST Patient has POLST: Yes POLST Status: DNR PD ED PE NORMAL - Vitals Vital signs reviewed: Yes - General General: Other (Is alert and oriented to person only, Pleasant and follows commands) - Abdomen Abdomen: Normal bowel sounds, Soft, Non tender - Rectal Rectal: Other (Rectal examination done with Luanne RN demonstrates a very firm protruding rectal mass consistent with anorectal cancer with sequela of recent bleeding.) - Derm Derm: Normal color, Warm and dry - Extremities Extremities: No edema, No calf tenderness / cord Results - Vitals Vitals: Vital Signs - 24 hr 04/08/18 13:51 Temperature 36 C L Heart Rate 87 Respiratory 18 Rate Blood Pressure 124/69 O2 Saturation 98 Oxygen O2 Source Room air - Labs Labs: Laboratory Tests 04/08/18 04/08/18 04/08/18 14:50 14:50 14:50 WBC 11.3 H RBC 4.06 L Hgb 11.5 L Hct 35.5 L MCV 87.5 MCH 28.2 MCHC 32.2 RDW 13.2 Plt Count 395 MPV 7.4 L PT 12.0 INR 1.1 Sodium 138 Potassium 4.0 Chloride 102 Carbon Dioxide 29 Anion Gap 7.0 BUN 16 Creatinine 0.7 Estimated GFR (MDRD) 80 L Glucose 91 Calcium 9.1 Total Bilirubin 0.4 AST 17 ALT 11 Alkaline Phosphatase 109 Total Protein 6.1 L Albumin 3.3 Globulin 2.8 Albumin/Globulin Ratio 1.2 Lipase 23 PD MEDICAL DECISION MAKING - ED course ED course: This is an 82-year-old woman who presents from an assisted living facility with ongoing rectal bleeding. Examination suggest that this is due to a rectal cancer that is protuberant from the rectum. This was discussed with the patient and her daughter. The daughter states that she would not want any diagnostics or intervention on this. Departure - Departure Disposition: 01 Home, Self Care Clinical Impression: Rectal mass, Lower GI bleed Condition: Good Record reviewed to determine appropriate education?: Yes Instructions: ED Hematochezia Stable Prescriptions: Lidocaine [Recticare] 1 gm TP QID PRN #4 ahfu PRN Reason: Rectal Pain Comments: Spoke with Dr. Peck on-call for Dr. Dhillon. They are aware of your case and likely diagnosis. Please call Dr. Dhillon's office for follow-up. Return for new or worsening symptoms.
[2018-04-08 15:00] LABS: HGB - HEMOGLOBIN 11.5 g/dL (12.0-16.0); MEAN CORPUSCULAR HEMOGLOBIN 28.2 pg (27.0-31.0); MEAN CORPUSCULAR HGB CONC 32.2 g/dL (32.0-36.0); MEAN CORPUSCULAR VOLUME 87.5 fL (81.0-99.0); MEAN PLATELET VOLUME 7.4 fL (7.9-10.8); RED BLOOD COUNT 4.06 10^6/uL (4.20-5.40); RED CELL DISTRIBUTION WIDTH 13.2 % (12.0-15.0); WHITE BLOOD COUNT 11.3 x10^3/uL (4.8-10.8)
[2018-04-08 15:06] LABS: INR 1.1 (0.8-1.2)
[2018-04-08 15:14] LABS: ALBUMIN 3.3 g/dL (3.2-5.5); ALBUMIN/GLOBULIN RATIO 1.2 (1.0-2.2); BILIRUBIN,TOTAL 0.4 mg/dL (0.2-1.0); CALCIUM 9.1 mg/dL (8.5-10.3); CREATININE 0.7 mg/dL (0.4-1.0); TOTAL PROTEIN 6.1 g/dL (6.7-8.2)
[2018-04-08 15:59] VITALS: BP 145/72
== END 2018-04-08 16:18 | disposition home or self-care (01) ==
LOC: ED 13:37
DX: K62.89 Other specified diseases of anus and rectum (principal); K92.2 Gastrointestinal hemorrhage, unspecified; G30.9 Alzheimer's disease, unspecified; F02.80 Dementia in other diseases classified elsewhere, unspecified severity, without behavioral disturbance, psychotic disturbance, mood disturbance, and anxiety
CPT/HCPCS: 36415; 80053; 83690; 85027; 85610; 85730; 86850; 86900; 86901; 99283

== ENCOUNTER 2018-06-02 00:09 | Outpatient (CLI) | payer MEDICARE | END 2018-06-02 00:10 | disposition EMS.NT | LOC: EMS 00:09 | PROVIDERS: ATTEND Surgery | DX: M25.561 Pain in right knee (principal); W06.XXXA Fall from bed, initial encounter; Y93.89 Activity, other specified; Y92.122 Bedroom in nursing home as the place of occurrence of the external cause ==